=== PATIENT | female | born 1965 | race Caucasian/White ===

== ENCOUNTER → 2017-12-08 15:45 | Outpatient (CLI) | payer OTHER, SELFPAY ==
[2017-12-08 17:54] LABS: Thyroid Stim Hormone (TSH) 0.34 uIU/mL (0.358-3.74)
== END ==
PROVIDERS: Family Provider Family Medicine; PCP Family Medicine; Visit Provider Family Medicine
DX: E03.9 Hypothyroidism, unspecified (principal)
CPT/HCPCS: 36415; 84443

== ENCOUNTER → 2019-01-07 | Outpatient (CLI) | payer OTHER, SELFPAY ==
[2019-01-07 10:47] LABS: Anion Gap 8 (5-15); BUN 19 mg/dL (7-18); Calcium,Total 8.8 mg/dL (8.5-10.1); Chloride 104 mmol/L (98-107); Cholesterol 194 mg/dL (200); EST Glomerular Filtration Rate 62 mL/min (>60); Est Glom Filt Rate - Afr Amer 75 mL/min (>60); Free T3 2.4 pg/mL (2.18-3.98); Glucose 104 mg/dL (74-106); High Density Lipoprotein 45 mg/dL; Potassium 3.6 mmol/L (3.5-5.1); Sodium Level 141 mmol/L (136-145); Thyroid Stim Hormone (TSH) 1.52 uIU/mL (0.358-3.74); Triglycerides 194 mg/dL; Very Low Density Lipoprotein 39 mg/dL (5-40)
== END | disposition home or self-care (01) ==
PROVIDERS: Family Provider Family Medicine; PCP Family Medicine; Referring Provider Family Medicine; Visit Provider Family Medicine
DX: I10 Essential (primary) hypertension (principal); E03.9 Hypothyroidism, unspecified
CPT/HCPCS: 36415; 80048; 80061; 84436; 84443; 84481

== ENCOUNTER 2019-08-30 08:28 | Emergency (ER) | payer OTHER, SELFPAY ==
[2019-08-30 08:29] VITALS: BP 147/94; PULSE 71; RESP 16; TEMP 37.2; O2SAT 98; BMI 37.3
--- NOTE | 2019-08-30 08:29 | EKG12_ITS ---
Test Reason : CP Blood Pressure : / mmHG Vent. Rate : 069 BPM Atrial Rate : 069 BPM P-R Int : 194 ms QRS Dur : 082 ms QT Int : 388 ms P-R-T Axes : 026 -02 014 degrees QTc Int : 415 ms Normal sinus rhythm Normal ECG Confirmed by CASSANDRA JOHNSON ([id number]), associate editor MARYANN PADILLA ([id number]) on 09/02/2019 1:08:02 PM Referred By: MALLIKA Confirmed By:CASSANDRA JOHNSON
--- NOTE | 2019-08-30 08:34 | RAD_ITS ---
STUDY: X-RAY CHEST REASON FOR EXAM: Female, 53 years old. Chest discomfort TECHNIQUE: Single AP portable view of the chest. COMPARISON: None. FINDINGS: EKG electrodes are seen. The lungs are clear and expanded. There is no demonstrated pleural abnormality. Normal size heart. Normal mediastinum and julio. Normal visualized pulmonary arteries. Normal visualized aortic arch and descending thoracic aorta. Normal visualized thoracic spine. Normal visualized ribs, clavicles, and shoulders. There is no demonstrated abnormality of the visualized soft tissue structures of the upper abdomen. RAD/Chest 1 View (Portable) IMPRESSION: Normal x-ray examination of the chest. Electronically Signed: Meet Blanchard, at 9:24 EDT , Service support ,
[2019-08-30] MEDS: Aspirin 81 MG TAB.CHEW 324 MG PO (08:46)
[2019-08-30 08:49] LABS: Absolute Lymphocyte Count 2.32 X10^3/uL (0.83-4.51); Absolute Neutrophil Count 3.3 X10^3/uL (2.0-7.7); Basophil# 0.04 X10^3/uL; Basophil% 0.6 % (0-1); Eosinophil# 0.09 X10^3/uL; Eosinophils% 1.4 % (0-5); Hematocrit 47.2 % (37-47); Hemoglobin 15.6 g/dL (12.0-15.0); Lymphocyte # 2.32 X10^3/ul (4.0); Lymphocyte % 37.4 % (19-41); Mean Corp Hgb Conc 33.1 g/dL (32-36); Mean Corpuscular Hgb 29.1 pg (27.0-32.0); Mean Corpuscular Volume 88.1 fL (81-99); Mean Platelet Vol. 10.9 fl (6.2-12.0); Monocyte# 0.46 X10^3/uL; Monocyte% 7.4 % (0-10); NRBC Flagged by Analyzer 0 % (0-5); Neutrophil # 3.29 X10^3/uL (2.7-7.7); Platelet Count 235 K/mm3 (150-450); RBC Distribution Width CV 13.5 % (11.6-14.6); RBC Distribution Width SD 42.5 fl (35.1-43.9); Red Blood Count 5.36 M/mm3 (4.2-5.4); White Blood Count 6.2 K/mm3 (4.4-11.0)
--- NOTE | 2019-08-30 08:53 | ED.DCSUM_ITS ---
- ER Visit Summary Date of Service: 08/30/19 Chief Complaint: I just do not feel well History of Present Illness: The patient is a 53 F 3 of hypertension, high cholesterol and hypothyroidism. Dad had an CT in his 40s. Mom had a stroke in her 50s. Patient is a non-smoker. She states she just has not felt well intermittently throughout the week. She has had some chest tightness. Not associated with exertion or shortness of breath. She has had no vomiting or diarrhea. She had a negative stress test 4 - 5 years ago. Patient is never had a DVT or PE. She has had no leg pain or swelling. No hemoptysis. She is had no recent travel, surgery, hospitalization or immobilization. There is no family history of clotting disorder. She states she can walk normally without chest pain or dyspnea. Physical Examination: Middle-aged female no acute distress vital signs are stab le afebrile. Pulse ox 90% on room air. H EENT exam normal. Neck nontender. Lungs clear to auscultation bilaterally. Heart regular rhythm no murmur rate about 70. Chest wall nontender. Abdomen soft and nontender normal bowel sounds no peritoneal signs. Extremities moves all 4. Equal symmetrical radial pulses. Calves are nontender without edema or cords. Back nontender. Neurologically she is awake and alert with no focal motor deficits. Test Results: EKG shows a normal sinus rhythm rate of 69 with no acute signs of CT or ischemia. Chest x-ray portable 1 view read by myself shows no acute abnormality with normal cardiac silhouette and mediastinum. Globin 15. Normal white count. Chemistries normal normal creatinine and gap. Troponin normal. Emergency Department Course and Treatment: Patient will undergo a cardiac work- up. I do not have a very strong suspicion that this is underlying cardiac disease. If her work-up is negative I think she can be followed up as an outpatient. Repeat exam the patient is doing well at 9:25 AM. She will be discharged home with outpatient follow-up with her primary care physician. She is return if worse. Treatment Plan: Follow-up with her primary care physician. Return if worse. Disposition: Discharge Impression: Atypical chest pain uncertain etiology This note was generated with [email or web address] software. It may contain incorrect words, spelling, and punctuation that were not noted in review of the chart prior to signing ED Disposition - Plan for ED Patient: Referrals: Erlin Ponce MD [Primary Care Provider] -
[2019-08-30 09:12] LABS: Anion Gap 6 (5-15); BUN 16 mg/dL (7-18); Calcium,Total 9.5 mg/dL (8.5-10.1); Chloride 105 mmol/L (98-107); EST Glomerular Filtration Rate 62 mL/min (>60); Est Glom Filt Rate - Afr Amer 75 mL/min (>60); Estimated Creatinine Clearance 52.05 ml/min; Glucose 110 mg/dL (74-106); Potassium 3.8 mmol/L (3.5-5.1); Sodium Level 140 mmol/L (136-145)
--- NOTE | 2019-08-30 09:24 | ED.DEP ---
ED Disposition - Plan for ED Patient: Disposition: Home or Assisted Living Instructions: ED Chest Pain Atypical Unkn Cause Referrals: Erlin Ponce MD [Primary Care Provider] - 3-5 Days if not improving Additional Instructions: All your labs, EKG and chest x-ray were normal today. Follow-up with your primary care physician in the next 3 to 5 days. Return emergency department if you are feeling worse or develop worsening chest pain.
[2019-08-30 09:34] VITALS: BP 119/85; PULSE 67; RESP 14; O2SAT 98
== END 2019-08-30 09:41 | disposition home or self-care (01) ==
PROVIDERS: Emergency Provider Emergency Medicine; PCP Family Medicine
DX: R07.89 Other chest pain (principal); I10 Essential (primary) hypertension
CPT/HCPCS: 71045; 80048; 84484; 85025; 93005; 99283

== ENCOUNTER → 2020-01-21 | Outpatient (CLI) | payer OTHER, SELFPAY ==
[2020-01-21 11:05] LABS: Anion Gap 5 (5-15); BUN 17 mg/dL (7-18); BUN/Creat Ratio 15.7 RATIO (10-20); Calcium,Total 9.4 mg/dL (8.5-10.1); Chloride 102 mmol/L (98-107); Cholesterol 199 mg/dL (200); Creatinine, Serum 1.08 mg/dL (0.55-1.02); EST Glomerular Filtration Rate 56 mL/min (>60); Est Glom Filt Rate - Afr Amer 68 mL/min (>60); Glucose 99 mg/dL (74-106); High Density Lipoprotein 41 mg/dL; Potassium 3.8 mmol/L (3.5-5.1); Sodium Level 138 mmol/L (136-145); Thyroid Stim Hormone (TSH) 2.17 uIU/mL (0.358-3.74); Triglycerides 167 mg/dL; Very Low Density Lipoprotein 33 mg/dL (5-40)
== END | disposition home or self-care (01) ==
LOC: MFPLAB 08:20
PROVIDERS: PCP Family Medicine; Referring Provider Family Medicine; Visit Provider Family Medicine
DX: E03.9 Hypothyroidism, unspecified (principal); I10 Essential (primary) hypertension
CPT/HCPCS: 36415; 80048; 80061; 84443

== ENCOUNTER → 2020-03-05 | Outpatient (CLI) | payer OTHER, SELFPAY | END | disposition home or self-care (01) | LOC: LABSPEC 15:47 | PROVIDERS: PCP Family Medicine; Referring Provider Family Medicine; Visit Provider Family Medicine | DX: N39.0 Urinary tract infection, site not specified (principal) | CPT/HCPCS: 87077; 87086; 87088; 87186 ==

== ENCOUNTER → 2020-04-08 | Outpatient (CLI) | payer OTHER, SELFPAY | END | disposition home or self-care (01) | LOC: LABSPEC 13:56 | PROVIDERS: PCP Family Medicine; Referring Provider Family Medicine; Visit Provider Family Medicine | DX: R30.0 Dysuria (principal) | CPT/HCPCS: 87077; 87086; 87088; 87186 ==

== ENCOUNTER → 2020-04-15 | Outpatient (CLI) | payer OTHER, SELFPAY ==
[2020-04-20 18:20] LABS: HPV Reflexed? NOT INDICATED
== END | disposition home or self-care (01) ==
LOC: LABSPEC 14:16
PROVIDERS: PCP Family Medicine; Referring Provider Family Medicine; Visit Provider Family Medicine
DX: Z12.4 Encounter for screening for malignant neoplasm of cervix (principal)
CPT/HCPCS: 88175; G0145

== ENCOUNTER → 2020-07-24 12:49 | Outpatient (CLI) | payer OTHER, SELFPAY ==
[2020-04-17 14:30] VITALS: BMI 36.3
[2020-07-24 15:40] LABS: Anion Gap 7 (5-15); BUN 18 mg/dL (7-18); BUN/Creat Ratio 20.1 RATIO (10-20); Calcium,Total 9.4 mg/dL (8.5-10.1); Chloride 103 mmol/L (98-107); Cholesterol 205 mg/dL (200); EST Glomerular Filtration Rate 70 mL/min (>60); Est Glom Filt Rate - Afr Amer 84 mL/min (>60); Free T3 2.7 pg/mL (2.18-3.98); Glucose 88 mg/dL (74-106); High Density Lipoprotein 50 mg/dL; Potassium 3.5 mmol/L (3.5-5.1); Sodium Level 139 mmol/L (136-145); T4 Free Direct 1.33 ng/dL (0.76-1.46); Thyroid Stim Hormone (TSH) 0.92 uIU/mL (0.358-3.74); Triglycerides 203 mg/dL; Very Low Density Lipoprotein 41 mg/dL (5-40)
== END ==
PROVIDERS: PCP Family Medicine; Referring Provider Family Medicine; Visit Provider Family Medicine
DX: I10 Essential (primary) hypertension (principal); E03.9 Hypothyroidism, unspecified
CPT/HCPCS: 36415; 80048; 80061; 84439; 84443; 84481

== ENCOUNTER → 2021-02-01 09:06 | Outpatient (CLI) | payer OTHER, SELFPAY ==
[2021-02-01 10:42] LABS: Anion Gap 6 (5-15); BUN 23 mg/dL (7-18); BUN/Creat Ratio 22.8 RATIO (10-20); Calcium,Total 9.4 mg/dL (8.5-10.1); Chloride 105 mmol/L (98-107); Creatinine, Serum 1.01 mg/dL (0.55-1.02); EST Glomerular Filtration Rate 61 mL/min (>60); Est Glom Filt Rate - Afr Amer 73 mL/min (>60); Glucose 97 mg/dL (74-106); Potassium 3.4 mmol/L (3.5-5.1); Sodium Level 140 mmol/L (136-145)
== END ==
PROVIDERS: PCP Family Medicine; Visit Provider Family Medicine
DX: I10 Essential (primary) hypertension (principal)
CPT/HCPCS: 36415; 80048

== ENCOUNTER → 2021-05-17 | Outpatient (CLI) | payer OTHER, SELFPAY | END | disposition home or self-care (01) | LOC: LABSPEC 18:10 | PROVIDERS: PCP Family Medicine; Referring Provider Family Medicine; Visit Provider Family Medicine | DX: U07.1 COVID-19 (principal); Z20.822 Contact with and (suspected) exposure to COVID-19 | CPT/HCPCS: 87635; U0005; U0003 ==

== ENCOUNTER 2021-09-09 09:47 | Outpatient (RCR) | payer OTHER, SELFPAY ==
--- NOTE | 2021-09-09 10:56 | HP.PTEVAL ---
Patient's Visit Information EDGAR GUZMAN is a 55 year old F referred to Physical Therapy by Dr. Pramod Horton DPM with a diagnosis of L achilles tendonitis. Date of Evaluation: 09/09/21 Physical Therapist: Omega Valdes, PT, ATC - Visit Plan Frequency: 1x/Week Duration: 2 Weeks Plan: Pt was issued a HEP of achilles stretches to continue with I. Pt to follow up in 4 weeks if still painful. - Subjective Pt reports she has had L Achilles pain intermittently for several years. Pt notes this episode has been going on for the past month. Pt reports she went on vacation at that time and walked a lot. Pt reports she was in terrible pain after that. Pt notes the pain has let up a little since then, but she still continues to have pain. Pt reports she went to the foot doctor where she received x-rays. Pt reports she has spurs present near the Achilles insertion. Pt reports she was issued a night splint which is very uncomfortable, and given stretches to do at home. No tingling or numbness in L LE at this time. Pt reports no sleep difficulty secondary to pain. 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 Pt reports the treadmill causes her increased pain. L achilles pain ranges from 1/10 while sitting to 8/10 with prolonged ambulation. - Pain L achilles Pain Intensity (Out of 10): 1 Pain Intensity Range: 8 - Objective Neuro: B LE sensation is WNL to light touch. B patellar reflex= 2/3. ROM: R ankle DF= 2, PF= 65 degrees; L ankle DF= 0, PF= 65 degrees. Observation: Pt has a pronounced calcaneal tuberocity. Pt is sore with palpation to that area. MMT: B ankles are grossly 5/5 throughout - Balance/Special Test Scores Lower Extremity Functional Score: 61 - Goals Goal 1:: Pt will be I with a HEP of achilles stretches Goal Time Frame: 1 Week - Rehabilitation Potential Physical Therapy Diagnosis: Pt has L achilles pain, weakness, and limited ankle DF ROM secondary to L achilles tendonitis Rehabilitation Potential: Good - Anticipated Interventions Patient/Client Instruction: Educate patient on: Condition, Plan of Care For the Purpose of:: To improve self management Therapeutic Exercise to Include: Strength training, Flexibilty training For the Purpose of:: To decrease pain, To increase ROM, To improve muscle performance and motor function Thank you for the opportunity to evaluate your patient. For Medicare and Medicare HMO plans, please review the plan of care and approve it. It will need to be FAXED BACK to us at [phone] for Medicare purposes. For Medicare only, by signing this I certify the plan of care. Please let me know if there are questions or concerns regarding this plan of care. Physician Signature: Date:
--- NOTE | 2021-11-17 12:22 | HP.PT.NRP ---
EDGAR GUZMAN was seen in my office for initial evaluation on 09/09/21. The following Plan of Care was established for this patient: Initial Frequency: 1x/Week Initial Duration: 2 Weeks Patient/Client Instruction: Educate patient on: Condition, Plan of Care For the Purpose of:: To improve self management Therapeutic Exercise to Include: Strength training, Flexibilty training For the Purpose of:: To decrease pain, To increase ROM, To improve muscle performance and motor function This patient was last seen in our office . Pertinent comments regarding their Physical therapy will appear below: Pt was treated for 1 PT visit for L achilles pain through the date of 09/09/21. Pt has not returned through this date and is discontinued at this time. At this point I will be discontinuing this patient from physical therapy. I would be happy to see this patient again in the future if found appropriate by the physician. Thank you! Omega Valdes, PT, ATC Balance/Gait/Functional tests - Balance/Special Test Scores Lower Extremity Functional Score: 61
== END 2021-09-09 19:00 | disposition home or self-care (01) ==
LOC: PT 09:47
PROVIDERS: PCP Family Medicine; Referring Provider Podiatrist; Visit Provider Podiatrist
DX: M76.62 Achilles tendinitis, left leg (principal)
CPT/HCPCS: 97161

== ENCOUNTER → 2021-11-15 | Outpatient (CLI) | payer OTHER, SELFPAY ==
[2021-11-15 16:18] LABS: Anion Gap 8 (5-15); BUN 20 mg/dL (7-18); BUN/Creat Ratio 20.4 RATIO (10-20); Calcium,Total 9.4 mg/dL (8.5-10.1); Chloride 102 mmol/L (98-107); Cholesterol 223 mg/dL (200); Creatinine, Serum 0.98 mg/dL (0.55-1.02); EST Glomerular Filtration Rate 63 mL/min (>60); Est Glom Filt Rate - Afr Amer 76 mL/min (>60); Free T3 2.6 pg/mL (2.18-3.98); Glucose 87 mg/dL (74-106); High Density Lipoprotein 42 mg/dL; Potassium 3.3 mmol/L (3.5-5.1); Sodium Level 139 mmol/L (136-145); Thyroid Stim Hormone (TSH) 1.47 uIU/mL (0.358-3.74); Triglycerides 150 mg/dL; Very Low Density Lipoprotein 30 mg/dL (5-40)
== END | disposition home or self-care (01) ==
PROVIDERS: PCP Family Medicine; Visit Provider Family Medicine
DX: E03.9 Hypothyroidism, unspecified (principal); I10 Essential (primary) hypertension
CPT/HCPCS: 36415; 80048; 80061; 84439; 84443; 84481

== ENCOUNTER → 2021-12-17 | Outpatient (CLI) | payer OTHER, SELFPAY | END | disposition home or self-care (01) | LOC: LABSPEC 16:52 | PROVIDERS: PCP Family Medicine; Visit Provider Family Medicine | DX: Z20.822 Contact with and (suspected) exposure to COVID-19 (principal) | CPT/HCPCS: 87635; U0003; U0005 ==

== ENCOUNTER → 2022-07-07 | Outpatient (CLI) | payer OTHER, SELFPAY ==
[2022-07-07 17:51] LABS: Absolute Lymphocyte Count 3.42 X10^3/uL (0.83-4.51); Absolute Neutrophil Count 2.3 X10^3/uL (2.0-7.7); Basophil# 0.04 X10^3/uL; Basophil% 0.6 % (0-1); Eosinophil# 0.08 X10^3/uL; Eosinophils% 1.3 % (0-5); Hematocrit 43.6 % (37-47); Hemoglobin 14.1 g/dL (12.0-15.0); Lymphocyte # 3.42 X10^3/ul (0.83-4.51); Mean Corp Hgb Conc 32.3 g/dL (32-36); Mean Corpuscular Hgb 28.8 pg (27.0-32.0); Mean Platelet Vol. 11.1 fl (6.2-12.0); Monocyte# 0.47 X10^3/uL; Monocyte% 7.4 % (0-10); NRBC Flagged by Analyzer 0 % (0-5); Neutrophil # 2.31 X10^3/uL (2.7-7.7); Neutrophil % 36.5 % (47-70); Platelet Count 240 K/mm3 (150-450); RBC Distribution Width CV 13.4 % (11.6-14.6); RBC Distribution Width SD 43.8 fl (35.1-43.9); White Blood Count 6.3 K/mm3 (4.4-11.0)
[2022-07-07 18:31] LABS: Free T3 2.4 pg/mL (2.18-3.98); Thyroid Stim Hormone (TSH) 2.09 uIU/mL (0.358-3.74)
== END | disposition home or self-care (01) ==
PROVIDERS: PCP Family Medicine; Referring Provider Family Medicine; Visit Provider Family Medicine
DX: E03.9 Hypothyroidism, unspecified (principal); R53.83 Other fatigue
CPT/HCPCS: 36415; 84443; 84481; 85025

== ENCOUNTER → 2023-01-23 | Outpatient (CLI) | payer OTHER, SELFPAY ==
[2023-01-23 18:51] LABS: Anion Gap 8 (5-15); BUN 18 mg/dL (7-18); BUN/Creat Ratio 20.7 RATIO (10-20); Calcium,Total 9.3 mg/dL (8.5-10.1); Chloride 103 mmol/L (98-107); Cholesterol 199 mg/dL (200); Creatinine, Serum 0.87 mg/dL (0.55-1.02); EST Glomerular Filtration Rate 72 mL/min (>60); Est Glom Filt Rate - Afr Amer 87 mL/min (>60); Free T3 2.6 pg/mL (2.18-3.98); Glucose 91 mg/dL (74-106); High Density Lipoprotein 44 mg/dL; Potassium 3.2 mmol/L (3.5-5.1); Sodium Level 139 mmol/L (136-145); T4 Free Direct 1.27 ng/dL (0.76-1.46); Thyroid Stim Hormone (TSH) 1.07 uIU/mL (0.358-3.74); Triglycerides 204 mg/dL; Very Low Density Lipoprotein 41 mg/dL (5-40)
== END | disposition home or self-care (01) ==
PROVIDERS: PCP Family Medicine; Referring Provider Family Medicine; Visit Provider Family Medicine
DX: I10 Essential (primary) hypertension (principal); E03.9 Hypothyroidism, unspecified
CPT/HCPCS: 36415; 80048; 80061; 84439; 84443; 84481

== ENCOUNTER → 2023-04-13 | Outpatient (CLI) | payer OTHER, SELFPAY ==
[2023-04-13 17:34] LABS: Absolute Lymphocyte Count 3.09 X10^3/uL (0.83-4.51); Absolute Neutrophil Count 4.8 X10^3/uL (2.0-7.7); Basophil# 0.06 X10^3/uL; Basophil% 0.7 % (0-1); Eosinophil# 0.11 X10^3/uL; Eosinophils% 1.3 % (0-5); Hematocrit 46.8 % (37-47); Lymphocyte # 3.09 X10^3/ul (0.83-4.51); Lymphocyte % 35.9 % (19-41); Mean Corp Hgb Conc 32.1 g/dL (32-36); Mean Corpuscular Hgb 28.5 pg (27.0-32.0); Mean Platelet Vol. 11.7 fl (6.2-12.0); Monocyte# 0.55 X10^3/uL; Monocyte% 6.4 % (0-10); NRBC Flagged by Analyzer 0 % (0-5); Neutrophil # 4.77 X10^3/uL (2.7-7.7); Neutrophil % 55.5 % (47-70); Platelet Count 269 K/mm3 (150-450); RBC Distribution Width CV 13.7 % (11.6-14.6); RBC Distribution Width SD 44.7 fl (35.1-43.9); Red Blood Count 5.26 M/mm3 (4.2-5.4); White Blood Count 8.6 K/mm3 (4.4-11.0)
[2023-04-13 17:45] LABS: Prothrombin Time (Protime)PT. 13.3 SECONDS (11.7-14.9)
== END | disposition home or self-care (01) ==
LOC: MFPLAB 14:47
PROVIDERS: PCP Family Medicine; Visit Provider Family Medicine
DX: H11.31 Conjunctival hemorrhage, right eye (principal)
CPT/HCPCS: 36415; 85025; 85610

== ENCOUNTER → 2023-07-27 | Outpatient (CLI) | payer OTHER, SELFPAY ==
--- NOTE | 2023-07-27 13:55 | RAD_ITS ---
STUDY: X-RAY - LEFT SHOULDER REASON FOR EXAM: Female, 57 years old. PAIN TECHNIQUE: 4 view(s) of the shoulder. COMPARISON: None. FINDINGS: Mildly narrowed glenohumeral articulation. Normal acromioclavicular joint. Normal acromion. Normal humeral head and visualized proximal humerus. The soft tissue structures are unremarkable. Normal visualized pulmonary apex. RAD/Shoulder min 2 Views IMPRESSION: Mild degenerative change. No acute fracture or dislocation.. Electronically Signed: Roderick Mohr MD at 22:25 EST ,
--- OUTSIDE RECORDS SUMMARY | 2023-07-27 16:15 | XMS RPT_ITS | CCD ---
Author Name Unknown Address [address] [place] [address] Organization [facility] Care Team Providers Care Superintendent Communications Name Role Phone Erlin Pike Primary Care Provider IRENE MCCARTY Attending Unavailable ERLIN PIKE Primary Care Unavailable IRENE MCCARTY Admitting Unavailable Erlin Pike MD Primary Care Provider [phone] OTTONILE SOTELO Attending Unavailable CONNOR HOWE Referring Unavailable ERLIN PIKE Primary Care Unavailable Medications Current Medications Medication Drug Class(es) Dates Sig (Normalized) Sig (Original) aspirin 81 mg chewable tablet (3 sources) Platelet Aggregation Inhibitor, Nonsteroidal Anti-inflammatory Drug aspirin 81 MG chewable tablet Chew 81 mg in the morning. 0 Active atenolol 50 mg oral tablet (2 sources) beta-Adrenergic Cesar take 1 tablet by mouth once daily atenoloL (TENORMIN) 50 MG tablet Take 50 mg by mouth daily . 0 Active atenolol 50 mg / chlorthalidone 25 mg oral tablet (1 source) Thiazide-like Diuretic, beta-Adrenergic Cesar Start: 12-29-2022 take 1 tablet by mouth once daily atenolol-chlorthal idone (Tenoretic) 50-25 MG tablet Take 1 tablet by mouth daily. 0 12/29/2022 Active atorvastatin 10 mg oral tablet (3 sources) HMG-CoA Reductase Inhibitor Start: 12-01-2022 take 1 tablet by mouth once daily atorvastatin (Lipitor) 10 MG tablet Take 10 mg by mouth daily. 0 12/01/2022 Active Completed/Discontinued Medications Medication Drug Class(es) Dates Sig (Normalized) Sig (Original) 2 ml metoclopramide 5 mg/ml injection (1 source) Dopamine-2 Receptor Antagonist Start: 04-04-2020 End: 04-04-2020 metoclopramide (REGLAN) injection 10 mg 1000 ml sodium chloride 9 mg/ml injection (2 sources) Start: 04-04-2020 End: 04-04-2020 sodium chloride 0.9% (NS) bolus 1,000 mL Problems Problem Classification Problem Date Documented Da te Episodic/Chronic Fluid and electrolyte disorders (1 source) Dehydration; Translations: [Dehydration] Episodic Other connective tissue disease (1 source) Calcific tendinitis of achilles tendon; Translations: [Calcific tendinitis, other site] 02-01-2023 Episodic Other connective tissue disease (2 sources) Calcific tendinitis, other site; Translations: [Calcific tendinitis, other site] Onset: 02-01-2023 Episodic Syncope (1 source) Syncope; Translations: [Syncope, unspecified syncope type] Episodic Results Test Name Value Interpretation Reference Range Facil ity Vital Signs Date Time Vital Sign Value Performing Clinician Faci lity 02-01-2023 13:18-0400 Body height 157.5 cm Ottoniel Sotelo MD Work Phone: [facility] 02-01-2023 13:18-0400 Body mass index (BMI) [Ratio] 37.31 kg/m2 Ottoniel Sotelo MD Work Phone: [facility] 02-01-2023 13:18-0400 Body weight 92.53 kg Ottoniel Sotelo MD Work Phone: [facility] 04-05-2020 00:45-0400 Pulse (Heart Rate) 68 /min [facility] 04-05-2020 00:45-0400 Pulse Oximetry 96 % [facility] 04-05-2020 00:30-0400 BP Diastolic 39 mm[Hg] [facility] 04-05-2020 00:30-0400 BP Systolic 101 mm[Hg] Irene [facility] 04-04-2020 20:42-0400 BMI (Body Mass Index) 35.43 kg/m2 [facility] 04-04-2020 20:42-0400 Body Temperature 97.3 [degF] Irene [facility] 04-04-2020 20:42-0400 [facility] 20:42-0400 Height 160 cm Irene Rings [facility] 04-04-2020 20:42-0400 Respiratory Rate 20 /min Irene Rings [facility] Encounters Encounter Date Encounter Type Care Provider Facility Start: 02-01-2023 End: 02-02-2023 ambulatory OTTONIEL SOTELO [facility] Start: 02-01-2023 End: 02-01-2023 Office outpatient new 45 minutes Ottoniel Sotelo MD Work Phone: [facility] Procedures Date Procedure Procedure Detail Performing Clinician Start: 04-04-2020 CT of head without contrast Irene Rings Work Phone: Start: 04-04-2020 Radiologic exam ches t single view Irene Rings Work Phone: Start: 04-04-2020 Basic metabolic 1998 panel - Serum or Plasma Irene Rings Work Phone: Start: 04-04-2020 Complete blood count with white cell differential, automated Irene Rings Work Phone: Start: 04-04-2020 Complete blood count with white cell differential, manual Irene Rings Work Phone: Start: 04-04-2020 Hepatic function 200 0 panel - Serum or Plasma Irene Rings Work Phone: Start: 04-04-2020 LAVENDER TOP Irene R ings Work Phone: Start: 04-04-2020 LIGHT BLUE TOP Irene Rings Work Phone: Start: 04-04-2020 LIGHT GREEN TOP Sudhaka r Rings Work Phone: Start: 04-04-2020 Lipase [Enzymatic activity/volume] in Serum or Plasma Irene Rings Work Phone: Start: 04-04-2020 MINT GREEN TOP Irene Rings Work Phone: Start: 04-04-2020 RAINBOW DRAW Irene R ings Work Phone: Start: 04-04-2020 Troponin measurement Olivas dhakar Rings Work Phone: Plan of Treatment Date Care Activity Detail Author Start: 02-03-2023 Influenza vaccination Influenza Vacc ine (#1) [facility] Start: 09-10-2022 DTaP/Tdap/Td Vaccine s (2 - Td or Tdap) DTaP/Tdap/Td Vaccines (2 - Td or Tdap) [facility] Start: 09-10-2022 Tetanus vaccination Tetanus: Every 1 0yrs [facility] Start: 01-10-2022 COVID-19 Vaccine (4 - Booster for Moderna series) COVID-19 Vaccine (4 - Booster for Moderna series) [facility] Start: 02-04-2020 Influenza vaccination given Se quential Influenza Vaccine (#1) [facility] Start: 2016 Administration of he rpes zoster vaccine Zoster Vaccines (1 of 2) [facility] Start: 2016 Screening for malign ant neoplasm of colon [facility] Start: 2016 Zoster Vaccines (1 of 2) Zoster Vacc mark anthony (1 of 2) [facility] Start: 2006 Screening for malign ant neoplasm of breast Mammogram [facility] Start: 1996 Screening for malign ant neoplasm of cervix [facility] Start: 11-04-1987 Screening for malign ant neoplasm of cervix Pap Smear [facility] Start: 1984 Diabetes mellitus screening Diabetes Screening [facility] Start: 1984 Hepatitis C antibody , confirmatory test Hepatitis C Screening [facility] Start: 1984 Hepatitis C screening Hepatitis C Sc reening [facility] Start: 1982 COVID-19 Vaccine (1 of 2) COVID-19 V accine (1 of 2) [facility] Start: 1981 HIV screening HIV Screening [facility] Start: 1978 Adolescent depressio n screening assessment [facility] Start: 1969 History and physical examination, annual for health maintenance Wellness Visit [facility] Start: 11-04-1967 MMR Vaccines (1 of 1 - Standard series) MMR Vaccines (1 of 1 - Standard series) [facility] Start: 1966 Hepatitis B Vaccines (1 of 3 - 3-dose series) Hepatitis B Vaccines (1 of 3 - 3-dose series) [facility] Start: 1966 HIV screening HIV Screening [facility] Start: 1966 Lipid panel Lipid Panel [facility] Start: 1966 Screening for malign ant neoplasm of cervix Pap Smear [facility] Start: 1966 Screening for malign ant neoplasm of colon [facility] Start: 1966 Screening mammography Mammogram [facility] Start: 1966 Tetanus vaccination Tetanus: Every 1 0yrs [facility] Start: 1966 Thyroid stimulating hormone measurement TSH Level [facility] Immunizations Immunization Date Immunization Notes Care Provider Fa cility 03-23-2021 influenza virus vacc ine, unspecified formulation Ottoniel Sotelo MD Work Phone: [facility] Payers Date Payer Category Payer [employer] ( and others) [facility] [id number] 2022-Present [address] [place] [address] Other Government [id number] 2022 [employer] ( and others) [id number] 2019 Private Health Insurance [employer] Reuben ETBABATUNDE OPEN ACCESS MANAGED CHOICE [id number] 2019-Present [id number] 2019 Private Health Insurance [id number] 1965 Unknown [id number] Social History Date Type Detail Facility Start: 04-04-2020 End: 02-01-2023 Tobacco smoking status KYIS Never smoker [facility] Start: 04-04-2020 End: 02-01-2023 Tobacco use and exposure Never used [facility] Start: 04-04-2020 Alcohol intake Lifetime non-d rosalba (finding) [facility] Start: 04-04-2020 History SDOH Alcohol Frequency 1 [facility] Start: 1965 Sex Assigned At Not on file [facility] Exposure to SARS-CoV -2 (event) Not sure [facility] Start: 02-01-2023 History of Social function [facility] Start: 02-01-2023 Tobacco use panel [facility] History of Present illness Narrative 02-01-2023 Ottoniel Sotelo MD - 02/01/2023 1:15 PM EDT Note Date & Type Note Facility 02-01-2023 History of en t illness Narrative Images from the original note were not included. [facility] [address] [place] [address] [place] [id number] Dept: [phone] Dept Yue Meza 1965 [id number] 02/01/2023 HISTORY OF PRESENT ILLNESS: Yue is a 57 y.o. female here today for evaluation of her left foot Yue states the problem has been present for approximately 1.5 years. She states that she has had some swelling in the back of her heels for years but only about a year and a half ago and they started become painful. The left side seems to be worse in the right. She saw her primary care physician who ordered an MRI and told her that she also had Planter fasciitis. She sits all day at her job. She enjoys walking. She states that her recent vacation to [place] was particularly difficult because of the pain. Yue states the problem started gradually with no injuries occurring Yue has tried or has been treated with the following: modifying her activity level and avoiding those activities which aggravate the problem, NSAID's, and physical therapy Review of Systems Surgical Risk Factors: Allergies to Metals or Latex: NO Have you been treated for a blood clot: NO Have you had a history of bleeding disorder: NO Have you had a history of Anesthetic problems: NO Do you have tendency to bruise easily: NO Do you experience prolonged or excessive bleeding from cuts or after surgery: NO General/Constitutional: General: no Cancer: NO Acute/Chronic Infections: NO HEENT/Neck: Problems with theThroat: NO Problems with the Eyes: NO Problems with the Ears: NO Problems with the Nose and Sinuses: NO Endocrine: Problems with Diabetes: NO Problems with Thyroid Disorder: NO Thorax: Problems with the Heart: NO Problems with the Lung: no Cardiovascular: Problems with Circulation: NO Problems with High Blood pressure: yes Gastrointestinal: Problems with Ulcers: NO Problems with the Liver: no Problems with Bowel Habits: NO Genitourinary: Problems with the Genitals: NO Urinary problems: NO Kidney disease or stones: NO Skin: Any general problems: NO Neurologic: Dizziness, blurred vision, headaches, problems with balance : NO Seizures or Stroke: NO Psychiatric: Emotional or Psychological disorders: NO Depression or Anxiety: no PAST MEDICAL HISTORY: Past Medical History: Diagnosis Date Hypertension No Known Allergies PHYSICAL EXAM: Ht 5' 2 (1.575 m) Wt 204 lb (92.5 kg) BMI 37.31 kg/m This is an age appropriate appearing female who is alert and oriented x 3. The patient appears well nourished. Psychiatric: The patient is able to verbalize normally and seems to have a good understanding of her situation. left lower extremity examination Lymphatic System: Swelling at the Achilles tendon insertion site. Vascular: Dorsalis pedis pulse: 2+ Posterior tibial pulse: 2+ Capillary refill is less than 3 seconds Skin/nails: Normal appearance, warm and dry Hair growth present on foot and toes Neurologic: Sensation intact to light touch throughout the foot and the ankle Muscle: Muscle strength testing: Anterior tibialis: 5/5 Posterior tibialis: 5/5 Peroneus brevis: 5/5 Peroneus longus: 5/5 Gastrocsoleus: 5/5 Tender to palpation overlying the Achilles tendon insertion site left worse than right. The more proximal Achilles tendon is nontender to palpation. Gait and Station: Yue is able to ambulate with a normal gait Yue is able to stand unassisted and maintains balance RADIOGRAPHIC INTERPRETATION: The following outside studies that were ordered by another care provider were reviewed and my interpretation of the these studies follows and these include: Nonweightbearing x-rays of the left ankle and MRI of the left ankle reviewed. The x-rays show calcification at the Achilles tendon insertion site with approximately 1.5 cm area involved. The MRI shows chronic tendinosis of the Achilles at the insertion site. REVIEW OF RELATED PREVIOUS DOCUMENTATION: No documents related to the current problem(s) were reviewed or no documents were available for review. LABORATORY RESULT INTERPRETATION: No labs were reviewed/No labs available for review DIAGNOSIS: Diagnosis Plan 1. Calcific Achilles tendinitis General supply request: Ankle toe off brace- LEFT MEDICAL DECISION MAKING: I had a discussion with Yue to make sure she has a good understanding of the diagnoses/issues that I think are present today and understands the plan moving forward. Yue was given a prescription for an Bsldf-Gqz-Vce-Brace today. I explained that once she gets the brace she needs to increase daily wear one hour per day until she is using it realtime reporter. If the brace is uncomfortable or makes her problem worse, or if she develops another problem as a result of the brace then she needs to have it adjusted by the adjunct writing instructor. If Yue has any other questions pertaining to brace she was told to call me. Per Medicare requirements: Patient's anatomy is not amenable with OTS/prefab devices and requires a custom device. If Yue fails bracing we briefly discussed surgical management which would include debridement of the Achilles tendon insertion site with the FHL tendon transfer. At this time her symptoms are somewhat intermittent and I explained that surgery would only be contemplated if she had ongoing symptoms not responding to nonsurgical treatments. Follow up if symptoms worsen or fail to improve, for call our office with any questions at [phone]. Electronically signed by Ottoniel Sotelo MD [facility] Department of Orthopedic surgery 02/01/2023 1:55 PM Voice recognition was used for portions of this note and although it was reviewed prior to signing some incorrect words or phrases could be present. documented in this encounter [facility] Instructions 02-01-2023 Patient Instructions Note Date & Type Note Facility 02-01-2023 Instructions Nithya Goodwin ATC - 02/01/2023 1:15 PM EDT Images from the original note were not included. documented in this encounter [facility] Evaluation note Note Date & Type Note Facility documented in this encounter [facility] Summary Purpose Family History No Family History Records FoundNo Family History Records FoundNo Family History Records Found Advance Directives No Advanced Directives Records FoundDocuments on File Type Date Recorded Patient Isotope Technologist Expl anation Advance Directives and Livin g Will 04/04/2020 9:37 PM Discharge Instructions * Attachments The following attachments cannot be sent through Care Everywhere. * Vasovagal Syncope (Uruguayan) * Lightheadedness or Faintness (Uruguayan) * Dehydration ([place]ruguayan) documented in this encounter Assessments Diagnosis Dehydration- Primary Syncope, unspecified syncope type Additional Source Comments INFORMATION SOURCE (unrecogn ized section and content) DATE CREATED AUTHOR AUTHOR'S ORGANIZ ATION 04/10/2020 [facility] DATE CREATED AUTHOR AUTHOR'S ORGANIZ ATION 02/05/[address] [facility] Reason for Visit (unrecogniz ed section and content) Reason Comments New Patient Left foot pain Specialty Diagnoses / Procedures Referred By Fahad ladd Referred To Contact Diagnoses left ankle achilles tendonitis, plantar fascial fibromatosis Procedures ND OFFICE/OUTPATIENT NEW MODERATE MDM 45-59 MINUTES Connor Howe [address] [place] [address] Ottoniel Sotelo MD [address] [facility] [address] [place] [address] Referral ID Status Reason Start Date Expiration Date Visits Re quested Visits Authorized [id number] Closed 12/29/2022 12/29/2023 1 1 Tamara Fernandes RN - 04/05/2020 12:05 AM Irene Cheung MD - 04/04/2020 11:02 PM Madelaine Knight RN - 04/04/2020 8:37 PM Tamara Medina RN - 04/04/2020 8:33 PM EDT ED Notes (unrecognized secti on and content) Called lab due to no troponin result. Lab states 10 minutes. ED PROVIDER NOTE [facility] EM[facility] NAME: Yue Meza AGE: 54 y.o. : 1965 VISIT DATE: 04/04/2020 CSN: [id number] PCP: Erlin Pike MD Chief Complaint Patient presents with Syncope Emesis Patient is a 54-year-old female brought to emergency for evaluation of syncopal episode. According to patient and her , patient was getting ready to eat dinner at a local restaurant, she felt lightheaded and passed out for 30 seconds. Patient's and significant others at the restaurant lowered her to the ground. Patient vomited once at the scene. No head injury. Patient denies any chest pain or difficulty breathing, no palpitations. She states that she went for a bike ride approximately 30 miles prior to going to a restaurant. She reports that she has been healthy otherwise except history of hypertension. Denies any weakness in the arm or leg, no slurring of speech, denies any strokelike symptoms. Past Medical History: Diagnosis Date Anxiety Hyperkalemia Hypertension History reviewed. No pertinent surgical history. History reviewed. No pertinent family history. Social History Socioeconomic History Marital status: Spouse name: Not on file Number of children: Not on file Years of education: Not on file Highest education level: Not on file Occupational History Not on file Social Needs Financial resource strain: Not on file Food insecurity Worry: Not on file Inability: Not on file Transportation needs Medical: Not on file Non-medical: Not on file Tobacco Use Smoking status: Never Smoker Smokeless tobacco: Never Used Substance and Sexual Activity Alcohol use: Never Frequency: Never Drug use: Never Sexual activity: Not on file Lifestyle Physical activity Days per week: Not on file Minutes per session: Not on file Stress: Not on file Relationships Social connections Talks on phone: Not on file Gets together: Not on file Attends [employer] service: Not on file Active member of club or organization: Not on file Attends meetings of clubs or organizations: Not on file Relationship status: Not on file Other Topics Concern Not on file Social History Narrative Not on file Previous Medications Medication Sig aspirin 81 mg chewable tablet Chew and Swallow 81 mg daily . atenoloL (TENORMIN) 50 MG tablet Take 50 mg by mouth daily . atorvastatin (LIPITOR) 20 MG tablet Take 20 mg by mouth daily . levothyroxine 88 mcg cap Take by mouth . No Known Allergies Review of Systems All other systems reviewed and are negative. Patient Vitals for the past 24 hrs: BP Temp Temp src Pulse Resp SpO2 Height Weight 04/04/20 2319 (!) 123/51 65 99 % 04/04/20 2042 126/65 97.3 F (36.3 C) Infrared 66 (!) 20 97 % 5' 3 90.7 kg (200 lb) Physical Exam Vitals signs and nursing note reviewed. Constitutional: General: She is not in acute distress. Appearance: Normal appearance. She is not toxic-appearing. HENT: Head: Normocephalic and atraumatic. Nose: No congestion or rhinorrhea. Eyes: General: No scleral icterus. Right eye: No discharge. Left eye: No discharge. Extraocular Movements: Extraocular movements intact. Conjunctiva/sclera: Conjunctivae normal. Pupils: Pupils are equal, round, and reactive to light. Neck: Musculoskeletal: Normal range of motion and neck supple. Cardiovascular: Rate and Rhythm: Normal rate and regular rhythm. Pulses: Normal pulses. Heart sounds: Normal heart sounds. Pulmonary: Effort: No respiratory distress. Breath sounds: No stridor. Abdominal: General: There is no distension. Palpations: Abdomen is soft. Tenderness: There is no abdominal tenderness. Musculoskeletal: General: No deformity or signs of injury. Right lower leg: No edema. Left lower leg: No edema. Skin: Coloration: Skin is not jaundiced or pale. Neurological: General: No focal deficit present. Mental Status: She is alert and oriented to person, place, and time. Sensory: No sensory deficit. Motor: No weakness. Comments: No facial droop, no slurring of speech. No focal neurological deficit noted. Normal gaze. Psychiatric: Mood and Affect: Mood normal. Behavior: Behavior normal. Laboratory & Radiographic Imaging (if done): Results for orders placed or performed during the hospital encounter of 04/04/20 Chem 7 Result Value Ref Range Sodium 139 135 - 145 mmol/L Potassium 3.6 3.5 - 5.1 mmol/L Chloride 104 98 - 108 mmol/L Bicarbonate 28 21 - 32 mmol/L Creatinine 1.16 (H) 0.40 - 1.10 mg/dL Glucose 127 (H) 65 - 99 mg/dL BUN 28 (H) 8 - 25 mg/dL eGFR 54 (L) >=60 mL/min/1.73 m2 BUN/Creatinine Ratio 24.1 (H) 10.0 - 20.0 Anion Gap 11 10 - 20 mmol/L Hepatic Function Panel (LFT) Result Value Ref Range Total Protein 7.2 6.0 - 8.0 g/dL Albumin 3.7 3.2 - 5.2 g/dL Total Bilirubin 0.5 0.0 - 1.3 mg/dL Bilirubin, Direct 0.1 0.0 - 0.4 mg/dL Alkaline Phosphatase 99 40 - 150 U/L AST 27 0 - 45 U/L ALT 20 14 - 65 U/L Lipase Result Value Ref Range Lipase 170 73 - 393 U/L CBC Auto Differential Result Value Ref Range WBC 10.43 4.50 - 11.00 K/mcL RBC 5.25 (H) 4.00 - 5.20 M/mcL Hemoglobin 15.1 12.0 - 16.0 g/dL Hematocrit 46.1 (H) 36.0 - 46.0 % MCV 87.8 80.0 - 100.0 fL MCH 28.8 26.0 - 34.0 pg MCHC 32.8 31.0 - 37.0 g/dL Platelets 234 150 - 400 K/mcL RDW - CV 13.4 11.6 - 14.8 % MPV 11.2 9.4 - 12.4 fL Neutrophils 53.0 % Lymphocytes 39.9 % Monocytes 5.1 % Eosinophils 1.1 % Basophils 0.7 % IG Percent 0.20 % Neutrophils Abs 5.54 1.70 - 7.00 K/mcL Lymphocytes Abs 4.16 (H) 0.90 - 4.00 K/mcL Monocytes Abs 0.53 0.30 - 0.90 K/mcL Eosinophils Abs 0.11 0.00 - 0.50 K/mcL Basophils Abs 0.07 0.00 - 0.30 K/mcL IG Absolute 0.02 0.00 - 0.30 K/mcL Nucleated RBC 0.0 % Nucleated RBC Abs 0.00 0.00 - 0.00 K/mcL CT Head Or Brain Without Contrast Final Result No acute intracranial abnormalities. Workstation ID: [id number] XR Chest 1 View Final Result No acute cardiopulmonary abnormalities. Workstation ID: [id number] Procedures MDM Number of Diagnoses or Management Options Dehydration: Syncope, unspecified syncope type: Diagnosis management comments: EKG: Normal sinus rhythm, heart rate of 65. No acute ST elevation noted. No PVCs noted. Labs, x-ray and CT scan brain results reviewed and discussed with patient. Patient was reexamined after IV fluids. She has no complaints at this time and feels back to normal. And she is comfortable going home. Patient tolerating liquids well and vital signs are stable. Her is at bedside. . Clinical Impression: 1. Dehydration 2. Syncope, unspecified syncope type ED Disposition ED Disposition Condition Comment Discharge Stable Yue Meza discharged to home/self care in stable condition. Follow-up Information 1. Erlin Pike MD. Specialty: Family Medicine Why: Call tomorrow for reexamination. No driving until released by your doctor. [address] [facility] [address] Contact information for after-discharge care Follow-up information has not been specified. New Prescriptions ondansetron (ZOFRAN) 4 MG tablet Take 1 (one) tablet (4 mg total) by mouth every 6 (six) hours as needed for nausea TAKE HOME PACK . Irene Mccarty MD 04/04/20 2332 Ems reports patient was eating at a restaurant, patient began vomiting after 2 bites of food and passed out for 2-3 minutes. Denies falling when passing out, states helped her down Bed: 04 Expected date: Expected time: Means of arrival: Comments: Sanket documented in this encounter Care Teams (unrecognized sec tion and content) FOR RECORDS PERTAINING TO PATIENTS WHO ARE OR HAVE BEEN ENROLLED IN A CHEMICAL DEPENDENCY/SUBSTANCEABUSE PROGRAM, SOME INFORMATION MAY BE OMITTED. This clinical summary was aggregated from multiple sources. Caution should be exercised in using it in the provision of clinical care. This summary normalizes information from multiple sources, and as a consequence, information in this document may materially change the coding, format and clinical context of patient data. In addition, data may be omitted in some cases. CLINICAL DECISIONS SHOULD BE BASED ON THE PRIMARY CLINICAL RECORDS. [employer] provides no warranty or guarantee of the accuracy or completeness of information in this document.
== END | disposition home or self-care (01) ==
PROVIDERS: PCP Family Medicine; Referring Provider Family Medicine; Visit Provider Family Medicine
DX: M25.512 Pain in left shoulder (principal)
CPT/HCPCS: 73030

== ENCOUNTER → 2023-08-24 | Outpatient (CLI) | payer OTHER, SELFPAY ==
[2023-08-24 11:17] LABS: Anion Gap 8 (5-15); BUN 17 mg/dL (7-18); BUN/Creat Ratio 15.6 RATIO (10-20); Calcium,Total 8.8 mg/dL (8.5-10.1); Chloride 100 mmol/L (98-107); Cholesterol 186 mg/dL (200); Creatinine, Serum 1.09 mg/dL (0.55-1.02); EST Glomerular Filtration Rate 55 mL/min (>60); Est Glom Filt Rate - Afr Amer 67 mL/min (>60); Free T3 2.3 pg/mL (2.18-3.98); Glucose 109 mg/dL (74-106); High Density Lipoprotein 37 mg/dL; Potassium 3.1 mmol/L (3.5-5.1); Sodium Level 136 mmol/L (136-145); T4 Free Direct 1.34 ng/dL (0.76-1.46); Thyroid Stim Hormone (TSH) 1.95 uIU/mL (0.358-3.74); Triglycerides 165 mg/dL; Very Low Density Lipoprotein 33 mg/dL (5-40)
== END | disposition home or self-care (01) ==
LOC: MFPLAB 08:01
PROVIDERS: PCP Family Medicine; Visit Provider Family Medicine
DX: E03.9 Hypothyroidism, unspecified (principal); I10 Essential (primary) hypertension
CPT/HCPCS: 36415; 80048; 80061; 84439; 84443; 84481

== ENCOUNTER 2023-08-30 13:30 | Outpatient (RCR) | payer OTHER, SELFPAY ==
--- NOTE | 2023-08-22 08:14 | HP.PTEVAL_ITS ---
Patient's Visit Information Visit Information Visit Information: EDGAR GUZMAN is a 57 year old F referred to Physical Therapy by Dr. Erlin Ponce MD with a diagnosis of L shoulder pain. Date of Evaluation: 08/16/23 Physical Therapist: Tacho Jane DPT Visit Plan Frequency: 2x /Week Duration: 6 Weeks Plan: -STM to delt and biceps tendon -grade 2 AP GH joint mobs, combine with PROM (ABD, Flex, IR/ER) -Shoulder AAROM (wall slides, wand, wall walks, pendulums...) -LOW LEVEL L shoulder strengthening (S/L ER and ABD, wall push ups, light bicep curls...) -scapular strengthening (can address thoracic mobility if shoulder feeling too painful) okay to use TB here Pt demo's mod irritation in L shoulder, IR and ABD seem to be most painful (biceps/triceps/delt most tender to touch). Major goal is to work on ROM, AAROM at first and progress to gravity resisted and eventually TB as appropriate. (HEP: S/L ER, S/L ABD, wall slides into Flex and ABD, scap retract with TB) Subjective Subjective: Pt presents to PT with L shoulder pain that began in of 2022. She remembers feeling it would hurt to sleep in the guest bed at her sons house, started out of the blue and has slowly been getting worse. Pt has difficulty with dressing, bathing, reaching behind her back, and lifting arm/reaching overhead (feels like it just stops). In the morning, shoulder feels stiff and pain is worst in morning. Works in [employer], in the . Pt likes to read, walk, play with dog in her free time. Pain is worst at 7 or 8/10 with movement, but with rest 1 or 2/10 pain. Pt taking ibuprofen to help with pain and with sleeping. Normally a side sleeper but trying to sleep on back d/t pain in shoulder. R handed. Denies any numbness or tingling in LE. Pain Left Shoulder: Pain Intensity (Out of 10): 1 Pain Intensity Range: 2 and 8 Objective Objective: AROM: LUE - flex 115 feels like it wont go any further, ABD 70 deg and painful, ER base of occiput, IR iliac crest and most painful motion RUE - WNL and dominant hand CERVICAL - WNL, some tightness with rotation and LSB but no exacerbation of L shoulder sxs PROM: LUE - flex approx. 165 deg, ER 60 deg pain, IR 40 deg pain MMT: resisted ABD at 30 deg 3+/5 and very painful, unable to test strength otherwise d/t pain BELLY PRESS: (+) HORNBLOWERS: (+) POWELL-JOSE: (+) PALPATION: tightness in L supra, point tenderness near delt insertion/biceps tendon, tightness and pain in biceps/triceps (R side (-) for pain/tenderness) Balance/Special Test Scores Quick DASH Score: 50.0000 Goals Goal 1:: Pt will achieve full AROM in L shoulder with <3/10 pain Goal Time Frame: 6-8 Weeks Goal 2:: Pt will be able to get dressed with <2/10 pain Goal Time Frame: 4-6 Weeks Goal 3:: Pt will demonstrate symmetrical UE strength Goal Time Frame: 6-8 Weeks Goal 4:: Pt will report <2/10 pain with palpation of L biceps/delt Goal Time Frame: 2-4 Weeks Rehabilitation Potential Physical Therapy Diagnosis: Pt presents to PT with L shoulder pain, decreased ROM, and L shoulder muscular tightness. Pt would benefit from skilled PT services to address pain, ROM, and strength needed to better perform ADLs. Rehabilitation Potential: Good Anticipated Interventions Patient/Client Instruction: Educate patient on: Condition and Plan of Care For the Purpose of:: To decrease pain, To increase ROM, To improve muscle performance and motor function, To improve ability to perform ADL's, To increase tolerance to activity/condition/position, To improve performance and independence with ADL's, To improve ability of physical actions for home/community/work/leisure, To improve health of tissue, To decrease soft tissue restriction, To increase flexibility/ROM, To assume or resume ADL's, To reduce risk of recurrence, To improve health and function, To foster healthy habits, To improve self management, To prevent re-injury, To improve ability to perform tasks related to life management and To improve tolerance to ADL's Therapeutic Exercise to Include: Strength training, Postural training, Flexibilty training, Passive ROM, Active ROM and Scapular Strength/Stabilization For the Purpose of:: To decrease pain, To increase ROM, To improve muscle performance and motor function, To improve ability to perform ADL's, To increase tolerance to activity/condition/position, To improve performance and independence with ADL's, To improve ability of physical actions for home/community/work/leisure, To improve health of tissue, To decrease soft tissue restriction, To increase flexibility/ROM, To assume or resume ADL's, To improve safety, To improve health and function, To foster healthy habits, To improve self management, To prevent re-injury, To improve ability to perform tasks related to life management and To improve tolerance to ADL's Manual Therapy Techniques to Include: Mobilization, Passive ROM and Soft tissue mobilization For the Purpose of:: To decrease pain, To increase ROM, To improve nutrient delivery to tissue, To improve muscle performance and motor function, To de crease soft tissue restriction, To increase flexibility/ROM and To improve self management Cryotherapy (ice pack, ice massage): Yes Thermo therapy (hot pack): Yes Ultrasound (thermal/non thermal): Yes For the Purpose of:: To decrease pain, To decrease swelling/inflammation, To increase ROM and To improve health of tissue Text: Thank you for the opportunity to evaluate your patient. For Medicare and Medicare HMO plans, please review the plan of care and approve it. It will need to be FAXED BACK to us at [phone] for Medicare purposes. For Medicare only, by signing this I certify the plan of care. Please let me know if there are questions or concerns regarding this plan of care. Physician Signature: Date:
--- NOTE | 2023-09-15 09:39 | HP.PTDCNRP_ITS ---
Patient Information Patient Information: EDGAR GUZMAN was seen in my office for initial evaluation on 08/16/23. The following Plan of Care was established for this patient: POC Established Initial Frequency: 2x /Week Initial Duration: 6 Weeks Anticipated Interventions Patient/Client Instruction: Educate patient on: Condition and Plan of Care For the Purpose of:: To decrease pain, To increase ROM, To improve muscle performance and motor function, To improve ability to perform ADL's, To increase tolerance to activity/condition/position, To improve performance and ind ependence with ADL's, To improve ability of physical actions for home/community/work/leisure, To improve health of tissue, To decrease soft tissue restriction, To increase flexibility/ROM, To assume or resume ADL's, To reduce risk of recurrence, To improve health and function, To foster healthy habits, To improve self management, To prevent re-injury, To improve ability to perform tasks related to life management and To improve tolerance to ADL's Therapeutic Exercise to Include: Strength training, Postural training, Flexibilty training, Passive ROM, Active ROM and Scapular Strength/Stabilization For the Purpose of:: To decrease pain, To increase ROM, To improve muscle performance and motor function, To improve ability to perform ADL's, To increase tolerance to activity/condition/position, To improve performance and independence with ADL's, To improve ability of physical actions for home/community/work/leisure, To improve health of tissue, To decrease soft tissue restriction, To increase flexibility/ROM, To assume or resume ADL's, To improve safety, To improve health and function, To foster healthy habits, To improve self management, To prevent re-injury, To improve ability to perform tasks related to life management and To improve tolerance to ADL's Manual Therapy Techniques to Include: Mobilization, Passive ROM and Soft tissue mobilization For the Purpose of:: To decrease pain, To increase ROM, To improve nutrient delivery to tissue, To improve muscle performance and motor function, To decrease soft tissue restriction, To increase flexibility/ROM and To improve self management Cryotherapy (ice pack, ice massage): Yes Thermo therapy (hot pack): Yes Ultrasound (thermal/non thermal): Yes For the Purpose of:: To decrease pain, To decrease swelling/inflammation, To increase ROM and To improve health of tissue Last Seen Last Seen: This patient was last seen in our office 09/06/23. Pertinent comments regarding their Physical therapy will appear below: Pt. was seen in PT for her shoulder pain. At her last visit her symptoms were worsening with PT. I am DCing her back to physician at this point in time. At this point I will be discontinuing this patient from physical therapy. I would be happy to see this patient again in the future if found appropriate by the physician. Thank you! Tacho Jane, DPT Balance/Gait/Functional tests Balance/Special Test Scores Quick DASH Score: 50.0000
== END 2023-08-30 19:00 | disposition home or self-care (01) ==
LOC: PT 13:30
PROVIDERS: PCP Family Medicine; Referring Provider Family Medicine; Visit Provider Family Medicine
DX: M25.512 Pain in left shoulder (principal)
CPT/HCPCS: 97110; 97140; 97161

== ENCOUNTER → 2023-09-23 | Outpatient (CLI) | payer OTHER, SELFPAY ==
--- NOTE | 2023-09-23 08:16 | MRI_ITS ---
HISTORY: Left shoulder pain worsened by physical therapy, NO TRAUMA, DECREASED ROM. TECHNIQUE: Multiplanar and multisequence MR images of the left shoulder were obtained without contrast. 131 images. COMPARISON: XR 07/27/2023. FINDINGS: BONE: No acute fracture or Hill-Sachs lesion. ACROMIOCLAVICULAR JOINT: Mild degenerative change. SUBACROMIAL-SUBDELTOID SPACE: Mild edema without significant bursal fluid. GLENOHUMERAL JOINT: Articular cartilage intact. No joint effusion. ROTATOR CUFF: Near thickness or full thickness supraspinatus tendon tear anteriorly superimposed on tendinopathy without significant tendon retraction. Infraspinatus tendinopathy present. Intact subscapularis and teres minor tendons. No significant cuff muscle atrophy. LABRUM: Degeneration of the labrum without acute displaced tear or paravertebral cyst. BICEPS TENDON: Mild intra-articular biceps tendinopathy. Extra-articular biceps tendon in the bicipital groove. MRI/Upper Ext Joint Only(Routine) IMPRESSION: High-grade tear of the supraspinatus tendon with rotator cuff tendinopathy. Mild degenerative change of the left shoulder. Electronically Signed: Keira Danielson MD at 10:14 EDT ,
== END | disposition home or self-care (01) ==
LOC: MRI 07:52
PROVIDERS: PCP Family Medicine; Referring Provider Family Medicine; Visit Provider Family Medicine
DX: M25.512 Pain in left shoulder (principal)
CPT/HCPCS: 73221

== ENCOUNTER → 2023-11-10 | Outpatient (CLI) | payer OTHER, SELFPAY | END | disposition home or self-care (01) | LOC: LABSPEC 15:21 | PROVIDERS: PCP Family Medicine; Referring Provider Family Medicine; Visit Provider Family Medicine | DX: L03.90 Cellulitis, unspecified (principal); L02.91 Cutaneous abscess, unspecified | CPT/HCPCS: 87070; 87205 ==

== ENCOUNTER 2023-11-30 13:30 | Outpatient (RCR) | payer OTHER, SELFPAY ==
--- NOTE | 2023-10-19 13:06 | HP.PTEVAL_ITS ---
Patient's Visit Information Visit Information Visit Information: EDGAR GUZMAN is a 57 year old F referred to Physical Therapy by LIZY Rivera with a diagnosis of Pain in left shoulder, M25.512. Date of Evaluation: 10/19/23 Physical Therapist: Francisco Yanez Visit Plan Frequency: 2x /Week Duration: 6 Weeks Plan: Continue with improving left shoulder PROM, AAROM, AROM, and light RTC/scapular strengthening as tolerated. Use manual therapy and modalities as needed for pain control. Pt. presents at this time with adhesive capsulitis of left shoulder. Subjective Subjective: Pt. is a 57 y.o. female who has been having left shoulder pain since April with no specific cause that she is aware of. Her PLOF includes no history of left shoulder pain in the past before this. She had recent MRI of her left shoulder which showed high grade tear of supraspinatus tendon and mild degenerative changes. Pt. is right handed. She denies any chest pain or radicular symptoms down her left arm. Pt. has difficulty with reaching overhead, reaching out to the side, reaching behind her back, UE dressing, sleeping, lifting things overhead, pushing/pulling, housework, and yard work. 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 Her goal with physical therapy have less pain and be able to to move her arm better. She has had previous physical t herapy this past August for her left shoulder. Pt. rates left shoulder pain at 3/10 currently, at worst 7/10, at best 1/10 and describes the pain as throbbing and achy. Pt. is currently taking Meloxicam for pain. Her PMH includes HBP controlled with medication. Her hobbies include reading. Objective Objective: Posture- Good posture in standing Palpation- No tenderness to palpation AROM left shoulder flexion 100 degrees pain, abduction 68 degrees pain, ER 8 degrees pain, IR 38 degrees pain PROM left shoulder flexion 108 degrees, abduction ER 18 degrees, IR 58 degrees AROM right shoulder flexion 160 degrees, abduction 176 degrees, ER 84 degrees, IR 60 degrees PROM right shoulder- NT Left shoulder strength flexion 3-/5, abduction 2+/5, ER 2-/5, IR 2+/5 Right shoulder strength flexion 4+/5, abduction 4+/5, ER 4+/5, IR 5/5 Balance/Special Test Scores Quick DASH Score: 50.0000 Goals Goal 1:: Pt. will improve left shoulder AROM flexion and abduction > 140 degrees in order to improve reaching overhead. Goal Time Frame: 4-6 Weeks Goal 2:: Pt. will improve left shoulder strength to 4/5 within range in order to improve ADL's. Goal Time Frame: 4-6 Weeks Goal 3:: Pt. will be able to sleep a full night with no interruptions due to pain. Goal Time Frame: 4-6 Weeks Goal 4:: Pt. will be able to complete UE dressing with no left shoulder pain. Goal Time Frame: 4-6 Weeks Goal 5:: Pt. will rate left shoulder pain at worst at 5/10 with ADL's. Goal Time Frame: 4-6 Weeks Goal 6:: Pt. will improve Quick Dash score < 40% disability in order to improve ADL's. Goal Time Frame: 4-6 Weeks Rehabilitation Potential Physical Therapy Diagnosis: Decreased left ROM, UE weakness, and pain Rehabilitation Potential: Fair Anticipated Interventions Patient/Client Instruction: Educate patient on: Condition and Plan of Care For the Purpose of:: To decrease pain, To increase ROM, To improve ability to perform ADL's, To improve performance and independence with ADL's, To increase flexibility/ROM, To assume or resume ADL's and To improve tolerance to ADL's Therapeutic Exercise to Include: Strength training, Postural training, Passive ROM, Active ROM and Scapular Strength/Stabilization Comment: Continue with improving left shoulder PROM, AAROM, AROM and light RTC/scapular strengthening as tolerated. For the Purpose of:: To decrease pain, To increase ROM, To improve ability to perform ADL's, To improve performance and independence with ADL's, To increase flexibility/ROM, To assume or resume ADL's and To improve tolerance to ADL's Manual Therapy Techniques to Include: Mobilization, Passive ROM and Soft tissue mobilization For the Purpose of:: To decrease pain, To increase ROM, To improve ability to perform ADL's, To improve performance and independence with ADL's, To increase flexibility/ROM, To assume or resume ADL's and To improve tolerance to ADL's TENS: Yes IF ES: Yes Cryotherapy (ice pack, ice massage): Yes Thermo therapy (hot pack): Yes For the Purpose of:: To decrease pain, To decrease swelling/inflammation, To increase ROM, To improve ability to perform ADL's, To improve performance and independence with ADL's, To increase flexibility/ROM, To assume or resume ADL's and To improve tolerance to ADL's Text: Thank you for the opportunity to evaluate your patient. For Medicare and Medicare HMO plans, please review the plan of care and approve it. It will need to be FAXED BACK to us at [phone] for Medicare purposes. For Medicare only, by signing this I certify the plan of care. Please let me know if there are questions or concerns regarding this plan of care. Physician Signature: Date:
--- NOTE | 2023-11-30 14:12 | HP.PTREVAL ---
Re-Evaluation Intro: LIZY Rivera, It has been my pleasure to treat EDGAR GUZMAN over the last 9 visits for Pain in left shoulder, M25.512. Please see the progress note below for an update on the physical therapy plan of care! Subjective Subjective: Patient reports that the only real limitation she feels that she has is behind the back. She only hurts when she does the exercises. Patient feels that she is 75% better. Objective Objective/Function: Posture: no guarding of the left UE- forward head, rounded shoulders Gait: good arm swing and trunk rotation Palpation: trigger point in supraspinatus ROM: AROM: Flexion: 135 Abd: 110 degrees IR: belt line, ER: 40 AAROM: Flexion: 150 Abd: full, IR: L3 Strength: Isometric: 4+/5 Plan Plan Plan: 11/30/23: Hold 4 weeks- will continue HEP with addition of 4 strength exercises- will follow up in 4 weeks for progression and re-eval IE: Continue with improving left shoulder PROM, AAROM, AROM, and light RTC/scapular strengthening as tolerated. Use manual therapy and modalities as needed for pain control. Pt. presents at this time with adhesive capsulitis of left shoulder. Balance/Gait/Functional tests Balance/Special Test Scores Quick DASH Score: 36.3625 Goals Goals Goal 1:: Pt. will improve left shoulder AROM flexion and abduction > 140 degrees in order to improve reaching overhead. Goal Time Frame: 4-6 Weeks Goal Progress: Progressing Goal 2:: Pt. will improve left shoulder strength to 4/5 within range in order to improve ADL's. Goal Time Frame: 4-6 Weeks Goal Progress: Progressing Goal 3:: Pt. will be able to sleep a full night with no interruptions due to pain. Goal Time Frame: 4-6 Weeks Goal Progress: Progressing Goal 4:: Pt. will be able to complete UE dressing with no left shoulder pain. Goal Time Frame: 4-6 Weeks Goal Progress: Progressing Goal 5:: Pt. will rate left shoulder pain at worst at 5/10 with ADL's. Goal Time Frame: 4-6 Weeks Goal Progress: Progressing Goal 6:: Pt. will improve Quick Dash score < 40% disability in order to improve ADL's. Goal Time Frame: 4-6 Weeks Goal Progress: Progressing Anticipated Interventions Anticipated Interventions Patient/Client Instruction: Educate patient on: Condition and Plan of Care For the Purpose of:: To decrease pain, To increase ROM, To improve ability to perform ADL's, To improve performance and independence with ADL's, To increase flexibility/ROM, To assume or resume ADL's and To improve tolerance to ADL's Therapeutic Exercise to Include: Strength training, Postural training, Passive ROM, Active ROM and Scapular Strength/Stabilization Comment: Continue with improving left shoulder PROM, AAROM, AROM and light RTC/scapular strengthening as tolerated. For the Purpose of:: To decrease pain, To increase ROM, To improve ability to perform ADL's, To improve performance and independence with ADL's, To increase flexibility/ROM, To assume or resume ADL's and To improve tolerance to ADL's Manual Therapy Techniques to Include: Mobilization, Passive ROM and Soft tissue mobilization For the Purpose of:: To decrease pain, To increase ROM, To improve ability to perform ADL's, To improve performance and independence with ADL's, To increase flexibility/ROM, To assume or resume ADL's and To improve tolerance to ADL's TENS: Yes IF ES: Yes Cryotherapy (ice pack, ice massage): Yes Thermo therapy (hot pack): Yes For the Purpose of:: To decrease pain, To decrease swelling/inflammation, To increase ROM, To improve ability to perform ADL's, To improve performance and independence with ADL's, To increase flexibility/ROM, To assume or resume ADL's and To improve tolerance to ADL's Re-Evaluation Ending Re-evaluation ending: Please do not hesitate to contact me at [phone] by phone or if you have questions or concerns regarding this new plan of care! Sincerely, MONY GrayT
--- NOTE | 2024-01-11 14:11 | HP.PT.NRP ---
Patient Information Patient Information: EDGAR GUZMAN was seen in my office for initial evaluation on 10/19/23. The following Plan of Care was established for this patient: POC Established Initial Frequency: 2x /Week Initial Duration: 6 Weeks Anticipated Interventions Patient/Client Instruction: Educate patient on: Condition and Plan of Care For the Purpose of:: To decrease pain, To increase ROM, To improve ability to perform ADL's, To improve performance and independence with ADL's, To increase flexibility/ROM, To assume or resume ADL's and To improve tolerance to ADL's Therapeutic Exercise to Include: Strength training, Postural training, Passive ROM, Active ROM and Scapular Strength/Stabilization For the Purpose of:: To decrease pain, To increase ROM, To improve ability to perform ADL's, To improve performance and independence with ADL's, To increase flexibility/ROM, To assume or resume ADL's and To improve tolerance to ADL's Manual Therapy Techniques to Include: Mobilization, Passive ROM and Soft tissue mobilization For the Purpose of:: To decrease pain, To increase ROM, To improve ability to perform ADL's, To improve performance and independence with ADL's, To increase flexibility/ROM, To assume or resume ADL's and To improve tolerance to ADL's TENS: Yes IF ES: Yes Cryotherapy (ice pack, ice massage): Yes Thermo therapy (hot pack): Yes For the Purpose of:: To decrease pain, To decrease swelling/inflammation, To increase ROM, To improve ability to perform ADL's, To improve performance and independence with ADL's, To increase flexibility/ROM, To assume or resume ADL's and To improve tolerance to ADL's Last Seen Last Seen: This patient was last seen in our office . Pertinent comments regarding their Physical therapy will appear below: Patient was to follow up in 4 weeks as needed- she will continue her home exercise program and be d/c from PT at this time. Encouraged to call if questions or concerns. At this point I will be discontinuing this patient from physical therapy. I would be happy to see this patient again in the future if found appropriate by the physician. Thank you! Krista Grimaldo, DPT Balance/Gait/Functional tests Balance/Special Test Scores Quick DASH Score: [phone]
== END 2023-11-30 19:00 | disposition home or self-care (01) ==
LOC: PT 13:30
PROVIDERS: PCP Family Medicine; Referring Provider Physician Assistant Surgical; Visit Provider Physician Assistant Surgical
DX: M25.512 Pain in left shoulder (principal)
CPT/HCPCS: 97110; 97140; 97162; 97530

== ENCOUNTER 2023-12-15 11:23 | Day surgery (SDC) | payer OTHER, SELFPAY ==
[2023-12-15 11:40] VITALS: BP 139/91; PULSE 69; RESP 17; TEMP 36.6; O2SAT 100; BMI 33.8
--- NOTE | 2023-12-15 13:00 | CYST_PTH ---
PATIENT: EDGAR GUZMAN LOC: [facility] [place] U#:[id number] AGE/SX: 58/F ROOM: RE12/15/[address]: Dr. Izzy Edge MD : 1965 BED: DIS: 12/15/2023 SPEC #: [id number] RECD: 12/15/23 18:20 STATUS: MILI TOBIN #: [id number] CECILIA: 12/15/23 13:[address]: Izzy Edge DEPT: SURGICAL PATHOLOGY RECD BY: Angus Bright ENTERED: 12/18/23 08:39 SP TYPE: Cyst OTHR DR: Dr. Erlin Ponce MD Tissues: CYST Procedures: Surgery Specimen Level III HEADER OPERATION: Excision cyst right anterior shoulder PRE-OP DIAGNOSIS: Sebaceous cyst right shoulder TISSUE SUBMITTED: Right shoulder cyst MICROSCOPIC DIAGNOSIS Right shoulder cyst, excision: Ruptured epidermal inclusion cyst with associated chronic inflammation, histiocytic reaction and foreign body giant cell reaction. [facility] 12/19/2023 MICROSCOPIC DESCRIPTION Slides are reviewed. GROSS DESCRIPTION Received in fixative is one container labeled with the patient's name and designated Right shoulder cyst. The specimen consists of a don-white skin piece measuring 2.0 x 1.5cm and up to 0.5cm in thickness. Also present in the container is a detached piece of don-white skin measuring 1.5 x 0.5 x 0.1cm. Both pieces are inked. Larger piece is serially sectioned. The entire specimen is submitted in two cassettes. [facility] 12/18/2023 TC:5 CPT:75805
--- NOTE | 2023-12-15 14:39 | PCM.HP.BLA ---
History and Physical Date of Admission: 12/15/23 The patient is examined and there are no changes from the H&P dated 11/29/2023. The patient presents for excision of a cyst on her anterior shoulder. Assessment & Plan Assessment/Plan (1) Sebaceous cyst: PLAN: Plan 4 weeks for excision cyst of shoulder.
[2023-12-15 15:09] VITALS: BP 128/85; BP 134/71
[2023-12-15] MEDS: Lidocaine 1% /Epi 1:100 9 ML, Sodium Bicarbonate 1 MEQ OPERA.SITE (15:16)
[2023-12-15 15:51] VITALS: BP 128/85; BP 134/71
[2023-12-15 15:53] VITALS: BP 128/85; BP 134/71
--- NOTE | 2023-12-15 15:53 | DCINST_ITS ---
Discharge Instructions Dressing / Incision Additional Dressing/Incision Instructions:: You may shower over the site but do not scrub. Leave the dressing in place until seen in the office. If the dressing falls off, apply a thin layer of antibiotic ointment (like Neosporin or bacitracin). Take the oral antibiotic (Keflex) 2 times a day until finished Follow Up Care Please Follow Up With: Izzy Edge MD Test Results: Test results from this visit will be discussed in further detail at your follow- up appointment, if applicable. Discharge Plan Admission Attending Provider: Izzy Edge Primary Care Provider: Erlin Ponce Instructions Print Language: Turkish Discharge Orders/Prescriptions Prescriptions: New cephalexin 500 mg capsule 500 mg PO BID 7 Days Qty: 14 0RF No Action atenolol 25 mg tablet 25 mg PO DAILY levothyroxine 88 mcg tablet 88 mcg PO DAILY atorvastatin 20 mg tablet 10 mg PO DAILY enalapril maleate 10 mg tablet 20 mg PO DAILY potassium chloride [Klor-Con 10] 10 mEq tablet extended release 20 meq PO DAILY Qsymia 3.75-23 mg capsule, ER multiphase 24 hr 1 cap PO DAILY bupropion HCl [Wellbutrin XL] 300 mg tablet extended release 24 hr 300 mg PO QAM aspirin 81 mg tablet,chewable 81 mg PO DAILY meloxicam 15 mg tablet 15 mg PO DAILY Referrals / Follow Up: Erlin Ponce MD [Primary Care Provider] - Disposition Disposition (needs filled in before D/C Order can be placed): Home, Self Care
--- NOTE | 2023-12-15 15:58 | PCM.OPRPT ---
Problems Associated Problem List Diagnoses (1) Sebaceous cyst: Report of Operation Date of Procedure: 12/15/23 Pre-Operative Diagnosis: Recurrent cyst right anterior shoulder Post-Operative Diagnosis: Same Surgery/Procedure Performed:: Excision recurrent cyst and scar right anterior shoulder (4.0 cm) Surgeon: Izzy Edge Type of Anesthesia: Local Specimen's removed: Cyst and surrounding scar tissue Estimated Blood Loss (mL): Minimal Description of Procedure: The patient presents today with a history of a longstanding cyst of the right anterior shoulder which has become infected on at least 2 occasions. She presents for excision to prevent further recurrence. The patient is made aware because of the previous history of infections and cyst rupture, that despite excision, recurrence could still occur. The patient was brought to the operating room and placed on the operating room table in the supine position. The right anterior shoulder was prepped and draped in the usual sterile fashion. 1% Xylocaine with epinephrine buffered with sodium bicarb is used to inject the periphery of the site. An elliptical incision is made over top of the area including the previous scar and an adjacent sinus tract. The dissection carried down to the subcutaneous fat. Hemostasis is controlled with cautery. The specimen is passed off the operative field to be sent to pathology. The wound is then closed with [id number] Monocryl sutures in the is tissue and dermis. Skin edges are approximated with a running subcuticular Monocryl suture. Further refinement the closure is done with a fast-absorbing gut. Dermabond, Steri-Strips, and a Tegaderm are placed on the site. She tolerated the procedure well was taken to the recovery area in an awake and stable condition. Needle and sponge counts are correct. Complications None Admit VTE Documentation VTE Mechan Device Prophylaxis: None Reason prophylaxis not ordered:: Treatment Not Indicated
[2023-12-15 16:08] VITALS: BP 139/91; BP 142/79; PULSE 69; RESP 16; TEMP 36.2; O2SAT 98
[2023-12-15 16:13] VITALS: BP 139/91
== END 2023-12-15 16:18 | disposition home or self-care (01) ==
LOC: SDC 11:26 → AC 11:27
PROVIDERS: PCP Family Medicine; Referring Provider Plastic Surgery; Visit Provider Plastic Surgery
PROC: (CPT 11404; principal; 2023-12-15 12:45)
DX: L72.3 Sebaceous cyst (principal); Z79.82 Long term (current) use of aspirin; Z79.899 Other long term (current) drug therapy
CPT/HCPCS: 11404; 88304

== ENCOUNTER → 2024-02-06 | Outpatient (CLI) | payer OTHER, SELFPAY ==
[2024-02-06 12:22] LABS: Absolute Lymphocyte Count 2.23 X10^3/uL (0.83-4.51); Absolute Neutrophil Count 2.5 X10^3/uL (2.0-7.7); Basophil# 0.06 X10^3/uL; Basophil% 1.1 % (0-1); Eosinophil# 0.09 X10^3/uL; Eosinophils% 1.7 % (0-5); Hematocrit 44.3 % (37-47); Hemoglobin 14.2 g/dL (12.0-15.0); Lymphocyte # 2.23 X10^3/ul (0.83-4.51); Lymphocyte % 42.3 % (19-41); Mean Corp Hgb Conc 32.1 g/dL (32-36); Mean Corpuscular Hgb 29.4 pg (27.0-32.0); Mean Corpuscular Volume 91.7 fL (81-99); Mean Platelet Vol. 11.5 fl (6.2-12.0); Monocyte# 0.41 X10^3/uL; Monocyte% 7.8 % (0-10); NRBC Flagged by Analyzer 0 % (0-5); Neutrophil # 2.47 X10^3/uL (2.7-7.7); Neutrophil % 46.9 % (47-70); Platelet Count 221 K/mm3 (150-450); RBC Distribution Width SD 43.3 fl (35.1-43.9); Red Blood Count 4.83 M/mm3 (4.2-5.4); White Blood Count 5.3 K/mm3 (4.4-11.0)
[2024-02-06 13:14] LABS: AST(SGOT) 20 U/L (15-37); Alanine Aminotransfer ALT/SGPT 16 U/L (13-56); Albumin, Serum 3.5 g/dL (3.2-5.0); Alkaline Phosphatase 116 U/L (45-117); Anion Gap 6 (5-15); BUN 16 mg/dL (7-18); BUN/Creat Ratio 16.5 RATIO (10-20); Calcium,Total 9.8 mg/dL (8.5-10.1); Chloride 110 mmol/L (98-107); Creatinine, Serum 0.97 mg/dL (0.55-1.02); EST Glomerular Filtration Rate 63 mL/min (>60); Est Glom Filt Rate - Afr Amer 76 mL/min (>60); Globulin 3.5 g/dL (2.2-4.2); Glucose 97 mg/dL (74-106); Potassium 4.4 mmol/L (3.5-5.1); Sodium Level 139 mmol/L (136-145)
[2024-02-06 13:25] LABS: Hemoglobin A1c 5.5 % (3.8-5.6)
== END | disposition home or self-care (01) ==
LOC: MFPLAB 10:04
PROVIDERS: PCP Family Medicine; Visit Provider Family Medicine
DX: R42 Dizziness and giddiness (principal); R73.9 Hyperglycemia, unspecified; I10 Essential (primary) hypertension
CPT/HCPCS: 36415; 80053; 83036; 84443; 85025

== ENCOUNTER 2024-02-10 09:02 | Emergency (ER) | payer OTHER, SELFPAY ==
[2024-02-10 09:03] VITALS: BP 158/100; PULSE 66; RESP 19; TEMP 35.3; O2SAT 100; BMI 32.8
--- NOTE | 2024-02-10 09:19 | EX.ED.DYSGE1 ---
HPI History of Present Illness Chief Complaint: Dizziness Onset/Context/Timing Onset: Days (2) Context: Gradual Onset Timing: Intermittent Quality: Off balance Location: Generalized Worsened by: Nothing Relieved by: Nothing Narrative Narrative: Patient presents with dizziness vertigo for the past 2 days. Patient states it is intermittent. Patient states she feels off balance. Patient denies any spinning sensation. Patient states she has a history of chronic tinnitus and chronic headaches. Patient states these are not worse than usual. Patient admits to some nausea and vomiting. Patient states that her blood pressure medications were recently adjusted. Patient states she noted her blood pressure to be high again today. Patient denies any recent fevers or chills. [facility] Medical History (Updated 02/10/24 @ 12:[address] Dayday Hackett, DO) History of bladder infections Hypokalemia Hyperlipidemia Hypothyroidism Hypertension Home Medications ?Medication ?Instructions ?Recorded ?Last Taken ?Type atenolol 25 mg tablet 25 mg PO DAILY 04/17/20 12/15/23 History levothyroxine 88 mcg tablet 88 mcg PO DAILY 04/17/20 12/15/23 History phentermine 3.75 mg-topiramate ER 1 cap PO DAILY 03/10/21 12/15/23 History 23 mg capsule,ext.release 24hr mphas (Qsymia) aspirin 81 mg chewable tablet 81 mg PO DAILY 11/29/23 12/14/23 History atorvastatin 20 mg tablet 10 mg PO DAILY 11/29/23 12/15/23 History bupropion HCl 300 mg 24 hr tablet, 300 mg PO QAM 11/29/23 12/15/23 History extended release (Wellbutrin XL) enalapril maleate 10 mg tablet 20 mg PO DAILY 11/29/23 12/15/23 History meloxicam 15 mg tablet 15 mg PO DAILY 11/29/23 12/15/23 History potassium chloride 10 mEq 20 meq PO DAILY 11/29/23 12/15/23 History tablet,extended release (Klor-Con) cephalexin 500 mg capsule 500 mg PO BID 7 days #14 caps 12/15/23 Unknown Rx Allergy/AdvReac Type Severity Reaction Status Date / Time No Known Allergies Allergy Verified 02/10/24 09:09 Family History (Updated 11/29/23 @ 13:43 by Roberta Hickman) Mother Hypertension Lung cancer CVA (cerebral vascular accident) Father Hypertension Myocardial infarction Surgical History (Updated 02/10/24 @ 09:[address] Dayday Hackett DO) Hx of removal of cyst Social History Smoking Status: Former smoker how long ago did patient quit smoking: quit 35 years ago alcohol intake: current details: social substance use type: does not use caffeine: Yes what type of physical activity do you participate in: walking frequency: 5-6 times per week seatbelt use: always do you feel safe at home: Yes additional social history: - Km pt denies vaping, denies marijuana use, denies edibles, uses baby aspirin daily, meloxicam daily, ROS ROS ED Constitutional Constitutional ED: Denies chills or fever(s) Eyes Eyes: Denies blurry vision or change in vision ENT ENT ED: Reports other Details: Chronic tinnitus ; Denies rhinorrhea or sore throat Cardiovascular Cardiovascular: Denies chest pain or palpitations Respiratory/Chest Respiratory/Chest: Denies cough or dyspnea Gastrointestinal Gastrointestinal: Reports nausea and vomiting Genitourinary Genitourinary ED: Denies dysuria or hematuria Musculoskeletal Musculoskeletal: Reports neck pain; Denies back pain Integumentary Denies abscess or rash Neurologic Neurologic: Reports headache(s); Denies weakness Allergic/Immunologic Allergic/Immunologic ED: Denies mouth swelling or urticaria EXAM Physical Exam Const Vital Signs: 02/10/24 09:03 02/10/24 09:26 02/10/24 11:02 Temperature 95.6 F L Temperature Source Temporal Pulse Rate 66 65 Pulse Rate [Lying] 67 Pulse Rate [Sitting (for 1 minute prior to obtaining)] 69 Pulse Rate [Standing (for 1 minute prior to obtaining)] 60 Respiratory Rate 19 H 18 Blood Pressure 158/100 H 138/81 H Blood Pressure [Lying] 135/79 H Blood Pressure [Sitting (for 1 minute prior to obtaining)] 139/84 H Blood Pressure [Standing (for 1 minute prior to obtaining)] 138/81 H Blood Pressure Mean 119 100 Blood Pressure Mean [Lying] 97 Blood Pressure Mean [Sitting (for 1 minute prior to obtaining)] 102 Blood Pressure Mean [Standing (for 1 minute prior to obtaining)] 100 Pulse Ox 100 97 Oxygen Delivery Method Room Air Room Air Positive well nourished and well developed General Appearance ED: well developed and NAD HEENT Reports moist mucous membranes Eyes PERRL and EOMs intact bilaterally Eyes Narrative: There is no nystagmus noted. Neck supple and no JVD Resp normal respiratory effort and clear to auscultation bilaterally Cardio regular rate and regular rhythm GI non-tender and non-distended Palpation: soft Extremity normal to inspection General Extremety ED: Negative for edema or tenderness General Extremity: Negative for edema Neuro oriented x3, CN's II-XII intact bilaterally and no sensory deficits noted Neuro Narrative: [place]-Hallpike testing was negative. Sensorium / Orientation: alert Motor Exam: strength 5/5 throughout Psych mental status grossly normal MDM MDM MDM Narrative Medical decision making narrative: Differential diagnosis includes vertigo, labyrinthitis, stroke, dehydration, hypertensive urgency, cardiac dysrhythmia, cardiac ischemia, electrolyte abnormality, urinary tract infection, and viral illness. EKG will be obtained to assess for cardiac dysrhythmia and cardiac ischemia. CT scan of the brain will be obtained to assess for intracranial bleeding and stroke. CBC will be obtained to assess for leukocytosis and anemia. Basic metabolic profile will be obtained to assess for electrolyte abnormality and renal function. High-sensitivity troponin will be obtained to assess for cardiac ischemia. Urinalysis will be obtained to assess for urinary tract infection and hematuria. COVID-19, influenza, and RSV PCR will be obtained to assess for viral illness. Lab Data Attestation: I reviewed the patient's lab results. Lab results narrative: CBC was reviewed and was within normal limits. Basic metabolic profile was reviewed and was within normal limits. High-sensitivity troponin was reviewed and was normal at 4. Urinalysis was reviewed. There is no evidence of urinary tract infection or hematuria. Labs: Laboratory Results - last 24 hr 02/10/24 02/10/24 02/10/24 10:22 10:25 11:24 WBC 6.0 RBC 4.96 Hgb 14.7 Hct 47.3 H MCV 95.4 MCH 29.6 MCHC 31.1 L RDW Std Deviation 45.0 H RDW Coeff of Jorden 12.7 Plt Count TNP MPV 11.3 Immature Gran % (Auto) 0.300 Neut % (Auto) 56.5 Lymph % (Auto) 33.8 [place] % (Auto) 7.7 Eos % (Auto) 1.0 Baso % (Auto) 0.7 Absolute Neuts (auto) 3.4 Absolute Lymphs (auto) 2.02 Nucleated RBC % 0 Differential Comment SCANNED Platelet Estimate ADEQUATE Plt Morphology Comment CLUMPED RBC Morphology NORM C+C Sodium 138 Potassium 3.7 Chloride 111 H Carbon Dioxide 20.0 L Anion Gap 7 BUN 14 Creatinine 0.95 Estim Creat Clear Calc 64.60 Est GFR (MDRD) Af Amer 78 Est GFR (MDRD) Non-Af 65 BUN/Creatinine Ratio 14.8 Glucose 91 Calcium 9.5 Troponin I High Sens 4 Urine Color Yellow Urine Clarity Clear Urine pH 7.0 Ur Specific Riva 1.010 Urine Protein Negative Urine Glucose (UA) Normal Urine Ketones Negative Urine Occult Blood Negative Urine Nitrite Negative Urine Bilirubin Negative Urine Urobilinogen Normal Ur Leukocyte Esterase 25 H Urine RBC 0 SEEN Urine WBC 0-5 SEEN Ur Squamous Epith Cells 0-5 SEEN Amorphous Sediment 1+ Urine Bacteria 1+ Urine Mucus 0 SEEN Radiography Diagnostic Testing: Clinical Impression(s) from Imaging Studies Brain CT 02/10/24 09:25 IMPRESSION: Negative Brain CT without contrast. Electronically Signed: Trace Simmons MD at 11:09 EDT , CT scan of the brain was obtained. There is no acute intracranial abnormality. This was interpreted by the radiologist and was also independently reviewed by myself. EKG Initial EKG: Attestation: I personally reviewed and interpreted this EKG as follows: Interpretation: Sinus Rhythm (64) and No Acute Injury Pattern Comments: EKG was obtained. On my independent interpretation, it showed a normal sinus rhythm with a rate of 64. PA interval, QRS interval, and QTc intervals were all normal. [place] was normal. There are no acute ST or T wave changes. Prior EKG tracings: available for review Prior: Unchanged (08/30/2019) Treatment and Re-Evaluation :: Patient was given IV fluids and Zofran. Patient was given a dose of Valium. Orthostatic vital signs were obtained and were within normal limits. Patient is feeling better on reevaluation. Patient was advised of her findings. Patient was instructed to drink plenty of fluids. Patient was instructed to follow-up with her primary care physician in 5 to 7 days. Patient understood and was agreeable with the plan. All questions were answered. Discharge Plan Triage Chief Complaint: Dizziness Other Complaint: Nausea/Vomiting ED Provider: Dayday Hackett Dx/Rx/DC Orders Clinical Impression: Lightheadedness, Hypertension Instructions: ED Dizziness, Uncertain Cause, ED High Blood Pressure Hypertension Prescriptions: No Action atenolol 25 mg tablet 25 mg PO DAILY levothyroxine 88 mcg tablet 88 mcg PO DAILY atorvastatin 20 mg tablet 10 mg PO DAILY enalapril maleate 10 mg tablet 20 mg PO DAILY potassium chloride [Klor-Con 10] 10 mEq tablet extended release 20 meq PO DAILY Qsymia 3.75-23 mg capsule, ER multiphase 24 hr 1 cap PO DAILY bupropion HCl [Wellbutrin XL] 300 mg tablet extended release 24 hr 300 mg PO QAM aspirin 81 mg tablet,chewable 81 mg PO DAILY meloxicam 15 mg tablet 15 mg PO DAILY cephalexin 500 mg capsule 500 mg PO BID 7 Days Qty: 14 0RF Primary Care Provider: Erlin Ponce Referrals: Erlin Ponce MD [Primary Care Provider] - 5-7 Days Print Language: Rw[place]an Disposition Disposition: Home, Self Care
--- NOTE | 2024-02-10 09:25 | CT_ITS ---
INDICATION: Dizziness EXAMINATION: CT BRAIN - CT Head or Brain W/O Contrast Injection TECHNIQUE: Multiple axial images were obtained of the head without intravenous contrast. The protocol utilizes one or more of the following dose reduction techniques: automated exposure control, adjustment of mA and/or kV according to patient size,and/or use of iterative reconstruction technique. IV Contrast dosage and agent: None. RADIATION DOSAGE (If Supplied By Facility): CTDIvol = ( 44.99 ) mGy, DLP = ( 812.98 ) mGycm COMPARISON: No relevant prior comparison study available FINDINGS: BRAIN PARENCHYMA: No intra- or extra-axial hemorrhage. No evidence of acute infarct. No intracranial mass or mass effect. There is preservation of the mendoza/white matter interface. Posterior fossa structures are unremarkable. CSF SPACES: Appropriate for age. No hydrocephalus. Basal cisterns are patent. CALVARIUM, SKULL BASE, PARANASAL SINUSES AND MASTOID AIR CELLS: Clear. No discrete lytic or blastic abnormalities. ORBITS: Both globes, extraocular muscles, optic nerves and retrobulbar fat appear unremarkable. ASPECTS Score for Acute Strokes: 10 CT/Brain/Head without Contrast IMPRESSION: Negative Brain CT without contrast. Electronically Signed: Trace Simmons MD at 11:09 EDT ,
[2024-02-10 09:26] VITALS: BP 135/79; BP 138/81; BP 139/84; PULSE 60; PULSE 67; PULSE 69
--- NOTE | 2024-02-10 09:26 | EKG12_ITS ---
Test Reason : N/V/WEAKNESS Blood Pressure : / mmHG Vent. Rate : 064 BPM Atrial Rate : 064 BPM P-R Int : 166 ms QRS Dur : 076 ms QT Int : 390 ms P-R-T Axes : 032 004 016 degrees QTc Int : 402 ms Normal sinus rhythm Normal ECG Confirmed by JUAN MARQUES, RONNIE ([id number]), telegraph editor ANNA SALDANA ([id number]) on 02/12/2024 6:32:28 AM Referred By: Confirmed By:RONNIE MARTINEZ MD
[2024-02-10] MEDS: diazePAM 5 MG Tablet 2.5 MG PO (09:54)
[2024-02-10] MEDS: 0.9% Normal Saline (1000mL) 1,000 ML 1000 ML IV (10:04)
[2024-02-10] MEDS: Ondansetron 4 MG/2 ML Vial IV (10:05)
[2024-02-10 10:36] LABS: Absolute Lymphocyte Count 2.02 X10^3/uL (0.83-4.51); Absolute Neutrophil Count 3.4 X10^3/uL (2.0-7.7); Basophil# 0.04 X10^3/uL; Basophil% 0.7 % (0-1); Eosinophil# 0.06 X10^3/uL; Hematocrit 47.3 % (37-47); Hemoglobin 14.7 g/dL (12.0-15.0); Lymphocyte # 2.02 X10^3/ul (0.83-4.51); Lymphocyte % 33.8 % (19-41); Mean Corp Hgb Conc 31.1 g/dL (32-36); Mean Corpuscular Hgb 29.6 pg (27.0-32.0); Mean Corpuscular Volume 95.4 fL (81-99); Mean Platelet Vol. 11.3 fl (6.2-12.0); Monocyte# 0.46 X10^3/uL; Monocyte% 7.7 % (0-10); NRBC Flagged by Analyzer 0 % (0-5); Neutrophil # 3.38 X10^3/uL (2.7-7.7); Neutrophil % 56.5 % (47-70); POSITIVE COUNT YES; RBC Distribution Width CV 12.7 % (11.6-14.6); Red Blood Count 4.96 M/mm3 (4.2-5.4)
[2024-02-10 10:59] LABS: Anion Gap 7 (5-15); BUN 14 mg/dL (7-18); BUN/Creat Ratio 14.8 RATIO (10-20); Calcium,Total 9.5 mg/dL (8.5-10.1); Chloride 111 mmol/L (98-107); Creatinine, Serum 0.95 mg/dL (0.55-1.02); EST Glomerular Filtration Rate 65 mL/min (>60); Est Glom Filt Rate - Afr Amer 78 mL/min (>60); Glucose 91 mg/dL (74-106); Potassium 3.7 mmol/L (3.5-5.1); Sodium Level 138 mmol/L (136-145); Troponin-I HS 4 pg/mL (3.0-54.0)
[2024-02-10 10:59] LABS: Differential Comment SCANNED; Differential Indicated SCAN CRITERIA MET; Platelet Estimate ADEQUATE (ADEQ); Platelet Morphology CLUMPED
[2024-02-10 11:00] LABS: Red Cell Morphology NORM C+C NORMAL (NORM C&C)
[2024-02-10 11:02] VITALS: BP 138/81; PULSE 65; RESP 18; O2SAT 97
[2024-02-10 11:31] LABS: Mucous, Urine 0 SEEN /hpf (<or=2+); Red Blood Cells-Urine 0 SEEN /hpf (0-5)
[2024-02-10 11:43] LABS: Color, Urine Yellow (Yellow); Glucose, Dipstick Normal (Normal); Ketone-Dipstick Negative (Negative); Leukocyte Esterase-Dipstick 25 /ul (Negative); Nitrite-Dipstick Negative (Negative); Occult Blood-Urine Negative /ul (Negative); Protein-Dipstick Negative (Negative); Urine Bilirubin Dipstick Negative (Negative); Urine Clarity Clear (Clear); Urine Urobilinogen Normal (Normal)
[2024-02-10 11:48] LABS: Amorphous Sediment 1+; Bacteria 1+ /hpf (None Seen); Squamous Epithelial Cells - UA 0-5 SEEN /hpf (5-10); White Blood Cells 0-5 SEEN /hpf (0-5)
[2024-02-10 13:00] VITALS: BP 143/71; PULSE 67; RESP 15; O2SAT 98
[2024-02-10 13:04] VITALS: BP 143/71; PULSE 67; RESP 16; TEMP 36.8; O2SAT 98
== END 2024-02-10 13:13 | disposition home or self-care (01) ==
PROVIDERS: Emergency Provider Emergency Medicine; PCP Family Medicine; Visit Provider Emergency Medicine
DX: R42 Dizziness and giddiness (principal); I10 Essential (primary) hypertension; Z87.891 Personal history of nicotine dependence; R11.2 Nausea with vomiting, unspecified; E78.5 Hyperlipidemia, unspecified; R51.9 Headache, unspecified; M54.2 Cervicalgia; G89.29 Other chronic pain; Z79.899 Other long term (current) drug therapy; Z79.82 Long term (current) use of aspirin
CPT/HCPCS: 70450; 80048; 81001; 84484; 85025; 87631; 93005; 96361; 96374; 99285; J7030; A4216; J2405

== ENCOUNTER → 2024-06-18 | Outpatient (CLI) | payer OTHER, SELFPAY ==
[2024-06-18 10:41] LABS: ALB/GLOB Ratio 1.1 RATIO (0.9-2.4); AST(SGOT) 16 U/L (15-37); Alanine Aminotransfer ALT/SGPT 15 U/L (13-56); Albumin, Serum 3.6 g/dL (3.2-5.0); Alkaline Phosphatase 136 U/L (45-117); Anion Gap 7 (5-15); BUN 20 mg/dL (7-18); Chloride 110 mmol/L (98-107); Cholesterol 220 mg/dL (200); Creatinine, Serum 1.05 mg/dL (0.55-1.02); EST Glomerular Filtration Rate 57 mL/min (>60); Est Glom Filt Rate - Afr Amer 69 mL/min (>60); Globulin 3.2 g/dL (2.2-4.2); Glucose 96 mg/dL (74-106); High Density Lipoprotein 52 mg/dL; Protein, Total 6.8 g/dL (6.4-8.2); Sodium Level 140 mmol/L (136-145); Triglycerides 147 mg/dL; Very Low Density Lipoprotein 29 mg/dL (5-40)
== END | disposition home or self-care (01) ==
LOC: MTLAB 07:49
PROVIDERS: PCP Family Medicine; Referring Provider Family Medicine; Visit Provider Family Medicine
DX: E03.9 Hypothyroidism, unspecified (principal); I10 Essential (primary) hypertension

== ENCOUNTER → 2025-06-03 | Outpatient (CLI) | payer OTHER, SELFPAY ==
--- NOTE | 2025-06-03 16:34 | BI_ITS ---
EXAM: SCRN MAMM (CAD)W/SHAWN BILAT DATE: 06/03/2025 CLINICAL HISTORY: F, Age 59 y/o , SCREEN Routine screening TECHNIQUE: Procedure Code: [id number] Modality: MG Procedure: SCRN MAMM (CAD)W/SHAWN BILAT COMPARISON: Prior exam(s) dated 03/23/2016. FINDINGS: TISSUE DENSITY: There are scattered areas of fibroglandular density. Bilateral Breast Mammographic Findings: No significant masses, calcifications or other abnormalities are identified. No interval change BI/SCRN MAMM (CAD)W/SHAWN BILAT IMPRESSION: Stable screening mammogram, no suspicious findings OVERALL FINAL ASSESSMENT BI-RADS 1: NEGATIVE. RECOMMENDATION: Routine annual follow-up in 1 Year Additional Recommendation none A letter with findings and recommendations will be mailed to the patient. Reading Location: [id number]
== END | disposition home or self-care (01) ==
LOC: OPBI 06-04 08:37
PROVIDERS: PCP Family Medicine; Referring Provider Family Medicine; Visit Provider Family Medicine
DX: Z12.31 Encounter for screening mammogram for malignant neoplasm of breast (principal)
CPT/HCPCS: 77063; 77067